=== PATIENT | female | born 1985 | race Caucasian/White ===

== ENCOUNTER 2023-08-19 09:43 | Emergency (ER) | payer OTHER, SELFPAY ==
[2023-08-19 09:53] VITALS: BP 132/83; PULSE 75; RESP 18; TEMP 36.9; O2SAT 100; BMI 29.5
--- NOTE | 2023-08-19 11:09 | ED_ITS ---
HPI - Skin/Abscess/Foreign Bdy General Date Seen: 08/19/23 Chief complaint: Skin/Abscess/Foreign Body Stated complaint: Rash on face Time Seen by Provider: 08/19/23 10:05 Source: patient Mode of arrival: ambulatory Limitations: no limitations History of Present Illness HPI narrative: Patient is a 37-year-old female presenting to the emergency department for a facial rash. He states this of his sinuses occurred since May. She has seen urgent care the 4 previous times. She states when occur she will have her right ear swell up in the nasal radiate to her face with erythema. She states it is painful. 1st few tired she was told it was an infection and was placed on antibiotics. Symptoms would improve with the antibiotics. This last time it occurred she went to urgent care this past Wednesday he had they are unsure what it was so they decided treated as a allergic reaction and start her on Zyrtec and prednisone. She states since then the swelling is gone down quite a bit but she still has pain mostly on her forehead when she was washing her hair. She does not have any pain to light touch. Still has the rash on her face. Has noticed a rash she was to move her around. Has a enlarged lymph node on the back of her right neck. She has a history of Minerva's thyroiditis and last time she had all checked was in May just before the symptoms started. No other aut oimmune disorders. No family history of lupus. Denies chest pain, shortness of breath, lightheadedness, dizziness, headache, vision changes, weakness, numbness, fevers, chills. Related Data Previous Rx's Medication Instructions Recorded prednisone 20 mg tablet 20 mg PO BID 5 days #10 tabs 08/15/23 Allergies Allergy/AdvReac Type Severity Reaction Status Date / Time No Known Drug Allergies Allergy Verified 08/19/23 09:52 Review of Systems Status of ROS: Reports: 10 or more systems reviewed and unremarkable except as noted in History and below [facility] Medical History Erysipelas ?A46 - Erysipelas (ICD-10) Exam Narrative: Exam Narrative: Const: Well-nourished, Well-developed, in mild distress Eyes: PERRL, no conjunctival injection, and symmetrical lids HENT: Atraumatic external nose and ears. Moist mucous membranes. Neck: Symmetric, trachea midline, enlarged lymph node done posterior right neck CVS: RRR, No murmurs or gallops. Peripheral pulses 2+ and equal in all extremities RESP: Unlabored respiratory effort. Clear to auscultation bilaterally. GI: Nontender/Nondistended, No rebound or guarding. MSK:Extremities w/o deformity, Normal Active ROM Skin: Warm, Dry. Macular papular rash seen on patient's bilateral cheeks and anterior to both ears Neuro: Normal Muscle tone, No focal neurological deficits. Psych: Awake, Alert, & Oriented x3. Appropriate mood and affect. Const: Vital Signs, click to edit/add: Vital Signs - 24 hr 08/19/23 09:53 Temperature 98.5 F Pulse Rate [Pulse Oximeter] 75 Respiratory Rate 18 Blood Pressure [Ri ght Upper Arm] 132/83 Pulse Oximetry 100 Oxygen Delivery Me thod Room Air Course Vital Signs Vital signs: Initial Vital Signs Temperature 98.5 F 08/19/23 09:53 Temperature Source Temporal Artery Scan 08/19/23 09:53 Pulse Rate 75 08/19/23 09:53 Pulse Rhythm Regular 08/19/23 09:53 Respiratory Rate 18 08/19/23 09:53 Blood Pressure 132/83 08/19/23 09:53 Blood Pressure Mean 99 08/19/23 09:53 Blood Pressure Position Sitting 08/19/23 09:53 Pulse Oximetry 100 08/19/23 09:53 Oxygen Delivery Method Room Air 08/19/23 09:53 Vital Signs Temperature 98.5 F 08/19/23 09:53 Pulse Rate 75 08/19/23 09:53 Respiratory Rate 18 08/19/23 09:53 Blood Pressure 132/83 08/19/23 09:53 Pulse Oximetry 100 08/19/23 09:53 Oxygen Delivery Method Room Air 08/19/23 09:53 Temperature 98.5 F 08/19/23 09:53 Pulse Rate 75 08/19/23 09:53 Respiratory Rate 18 08/19/23 09:53 Blood Pressure 132/83 08/19/23 09:53 Pulse Oximetry 100 08/19/23 09:53 Oxygen Delivery Method Room Air 08/19/23 09:53 MDM - Skin/Abscess/Foreign Bdy MDM Narrative Medical decision making narrative: Patient is a 37-year-old female presenting with a rash on her face. She also has a swollen lymph node. My 1st thought with her my lower appearing rash on her face that is back could be lupus. She already does have an autoimmune disorder. I will order CBC, CMP, urine , urinalysis, ESR, TSH. TOMMY ordered but is a send out lab. Also considered possible trigeminal neuralgia considered she says it starts in her ear and is tender to the touch but the ten derness is mostly on her forehead and just does when she is washing her hair. It is nontender to to light touch. I will check her TSH to see if there is any signs of a thyroid issue causing these symptoms since she already does have Minerva's. She states she has been gaining weight but she does have this large lymph node so I did consider lymphoma. CBC showed no concerning abnormalities. White blood cell count lines are normal other than very mildly elevated neutrophils at 7.48. CMP shows no concerning findings with no signs of kidney dysfunction. Urinalysis is normal. Urine test is negative. At this point even with the positive TOMMY it is hard to say this is actually lupus as she has no other diagnostic criteria. She may need a biopsy to better diagnose this. TSH is normal. At this point I not sure what is causing this rash in had extensive conversation with her about it. She does have follow-up with dermatology to endocrinology. She at this time will be discharged home and she is agreeable with this plan. Lab Data Labs: Lab Results 08/19/23 08/19/23 Range/Units 11:12 13:04 WBC 10.62 (4.50-11.00) K/uL RBC 5.14 (4.00-5.20) m/uL Hgb 14.9 (12.0-16.0) gm/dL Hct 45.0 (33.0-51.0) % MCV 88 (80-100) fL MCH 29 (26-34) pg MCHC 33 (32-36) gm/dL RDW Coeff of Sebastien 12.5 (11.5-15.5) % Plt Count 286 (140-440) K/uL Neut % (Auto) 70.4 (42.0-72.0) % Lymph % (Auto) 21.8 (20-44) % [place] % (Auto) 6.7 (0.0-11.0) % Eos % (Auto) 0.7 (0.0-7.0) % Baso % (Auto) 0.2 (0.0-3.0) % Neut # (Auto) 7.48 H (1.7-7.0) K/uL Lymph # (Auto) 2.32 (0.90-2.90) K/uL [place] # (Auto) 0.70 (0.00-0.90) K/UL Eos # (Auto) 0.07 (0.00-0.50) K/uL Baso # (Auto) 0.02 (0.00-0.30) K/uL Abs Immat Gran (auto) 0.02 (0.00-0.30) K/uL Imm/Tot Granulo (auto) 0.2 % ESR 6 (2-20) mm/hr Sodium 141 (135-149) mmol/L Potassium 3.6 (3.6-5.1) mmol/L Chloride 106 (96-114) mmol/L Carbon Dioxide 27 (20-32) mmol/L Anion Gap 8 (7-15) mEq/L BUN 20 (5-24) mg/dL Creatinine 0.8 (0.5-1.5) mg/dL Estimated Creat Clear 100.62 Estimated GFR 97 ml/min Glucose 87 (60-115) mg/dL Calcium 9.4 (8.4-10.6) mg/dL Total Bilirubin 0.3 (0.1-1.5) mg/dL AST 15 (12-35) U/L ALT 15 (4-35) U/L Alkaline Phosphatase 44 (40-150) U/L Total Protein 7.6 (6.0-8.3) g/dL Albumin 4.5 (3.3-5.0) g/dL TSH 2.620 (0.270-4.200) uIU/mL Urine Color Yellow (Yellow) Urine Appearance Clear (Clear) Urine pH 6.0 (5.0-8.5) Ur Specific Alpine >= 1.030 (1.000-1.030) Urine Protein Negative (Negative) Urine Glucose (UA) Negative (Negative) Urine Ketones Negative (Negative) Urine Blood Negative (Negative) Urine Nitrite Negative (Negative) Urine Bilirubin Negative (Negative) Urine Urobilinogen 0.2 (0.2-1.0) Ur Leukocyte Esterase Negative (Negative) Urine RBC 0-2 (0-2) Urine WBC 0-2 (0-5) Ur Squamous Epith Cells Moderate A (None-Few) Calcium Oxalate Crystal Many A (None) Urine Bacteria None (None) Urine HCG, Qual Negative (Negative) Discharge Plan Discharge Clinical Impression: Rash Patient Disposition: Home, Self-Care Condition: Stable Instructions: Acute Rash (ED) Additional Instructions: Make sure you follow-up with your library circulation assistant an farm tractor operator appointment that your already have scheduled. I am not sure what is causing this rash right now but it is reasonable to speak to the specialist about possible autoimmune issue consider you do also have Minerva's. Return to emergency department for new or worsening symptoms Prescriptions: No Action prednisone 20 mg tablet 20 mg PO BID 5 Days Qty: 10 0RF Follow Up/Referrals: Provider,Not a Local [Primary Care Provider] - Stand Alone Forms: [facility] Info Instructions
--- OUTSIDE RECORDS SUMMARY | 2023-08-19 11:20 | XMS_ITS | Encounter Summary ---
Author Name Unknown Organization [facility] Address [address] [place] [address]. [id number] Care Team Providers Care Volunteer Firefighter Name Role Phone Emily Tee MD Primary Care Provid er Encounter Details Date Type Department Care Team (Latest Contact Info) Description 06/22/2023 Travel Social History Tobacco Use Types Packs/Day Years Used Date Smoking Tobacco: Former Cigarettes 1 Q uit: 04/09/2013 Smokeless Tobacco: Never Comments:quit smoking Alcohol Use Standard Drinks/Week Comments Yes 0 (1 standard drink = 0.6 oz pur e alcohol) socially Adolescent Education Answer Date Record ed Getting School Help Needed Not on file 05/26 Sex and Gender Information Value Date Recorded Sex Assigned at Not on file Gender Identity Not on file Sexual Orientation Not on file documented as of this encounter Plan of Treatment Not on file documented as of this encounter Visit Diagnoses Not on filedocumented in this encounter Care Teams Volunteer Firefighter Relationship Specialty Start Date End Date Emily Tee MD [address] [place] [address] PCP - General Internal Medicine 04/19/13 documented as of this encounter
--- OUTSIDE RECORDS SUMMARY | 2023-08-19 11:20 | XMS_ITS | Clinical Summary ---
Author Name Unknown Organization [employer] [facility] Address [place], [place] [address] Care Team Providers Care Business Management Specialist Name Role Phone Roland [employer] Primary Care Provider [phone] Allergies No known active allergies Medications Medication Sig Dispensed Refills Start Date End Date Status levothyroxine (SYNTHROID) 50 mcg tabletIndications:A nti-TPO antibodies present Take 1 tablet by mouth before breakfast. 90 tablet 3 01/21/2018 Active ibuprofen (ADVIL; MOTRIN) 600 mg tabletIndications:D ichorionic diamniotic twin in third trimester Take 1 tablet by mouth every 6 hours. Maximum of 3200 mg in 24 hours. 40 tablet 0 03/14/2018 Active Breast Pump - PurchaseIndications :Dichorionic diamniotic twin in third trimester For home use. TWINS 1 Device 0 03/14/2018 Active copper intrauterine device (PARAGARD) Inject 1 Device intrauterine one time for 1 dose. 0 05/19/2018 Active Hospital, Clinic, or Other Facility Administered Medication Ordered Dose Route Frequency Start Date End Date Status copper intrauterine device (PARAGARD)Indications:Encoun ter for IUD insertion 1 Device IU Q 10 YEARS 05/19/2018 Act mitchell Active Problems Problem Noted Date Diagnosed Date Minerva's disease 10/20/2018 Dichorionic diamniotic twin in third t rimester 03/13/2018 Thyroid disease affecting 03/13/2018 Active labor 03/13/2018 Hidradenitis suppurativa 07/26/2014 labor with delivery Immunizations Name Administration Dates Next Due DTaP 02/28/1991,12/26/1987,03/12/1987 ,10/17/1986 Hib Conjugate, Unspecified 12/26/1987,03/12/1987 ,10/17/1986,09/10/1986 Human Papilloma Virus Vaccine 04/29/2009, 009 Influenza, IIV3 (Age >=3 years) 09/10/1986 MMR 01/23/1998,12/26/1987 Polio Virus, Unspecified 02/28/1991,12/26/1987,0 10/17/1986,09/10/1986 Td (Age >=7 Years) 02/28/2007,01/23/1998 Tdap 01/15/2015,07/02/2012,04/23/2008 Family History Medical History Relation Name Comments Alcoholism Father Unknown Father Thyroid Disease Maternal Aunt Alcoholism Mother Good Health Mother Thyroid Disease Mother partial thyr oidectomy for nodules Relation Name Status Comments Father Alive Maternal Aunt Mother Alive Social History Tobacco Use Types Packs/Day Years Used Date Smoking Tobacco: Former Cigarettes 0.5 12 0 02/06/2002 - 02/06/2014 Smokeless Tobacco: Never Tobacco Cessation:Ready to Q uit: No; Counseling Given: Yes Alcohol Use Standard Drinks/Week Comments Yes 2.5 (1 standard drink = 0.6 oz p ure alcohol) none while PHQ-2 Answer Date Recorded PHQ-2 Score 0 10/11/2018 Sex and Gender Information Value Date Recorded Sex Assigned at Not on file Gender Identity Not on file Sexual Orientation Not on file Obstetrics History Para Term AB IAB SAB Ectopic Multiple Livin g Live Births 2 1 1 1 1 3 3 Date Outcome GA Total Labor Labor/2nd/3rd Weight Sex Delivery Anes PTL Era A1 A5 Name Cl in 02/26 Term 38w 1d 7h 30m/3h 25m/0h 49m 3.12 kg (6 lb 14 oz) M Vag Epidu ral N Mary ng 9 9 Brice 03/13 35w 4d 2.79 kg (6 lb 2.4 oz) M Vag Epidu ral Mary ng 7 8 DEWIT Z,BB- Brittanie galloway Delivery Location:[facility]) Comments:OR staff pres ent on floor 03/13 35w 4d 2.08 kg (4 lb 9.4 oz) F Vag Epidu ral N Mary ng 4 8 DEWIT Z,BGMinerva B DELANEY ANY Dr. Zena galloway Complications:None Delivery Location:[facility]) Last Filed Vital Signs Vital Sign Reading Time Taken Comments Blood Pressure 110/62 10/20/2018 1:43 PM CDT Pulse 80 10/20/2018 1:43 PM CDT Temperature 36.7 ??C (98 ??F) 03/13/2018 10:01 PM CDT Respiratory Rate 18 03/14/2018 7:51 AM CDT Oxygen Saturation 99% 03/14/2018 7:51 AM CDT Inhaled Oxygen Concentration - - Weight 89.8 kg (198 lb) 10/20/2018 1:43 PM CDT Height 172.1 cm (5' 7.75) 10/20/2018 1:43 PM CD T Body Mass Index 30.33 10/20/2018 1:43 PM CDT Plan of Treatment Health Maintenance Due Date Last Done Comments COVID-19 vaccine series (#1) 06/05/1986 Hepatitis C screening for age 18-79 12/05/2003 Depression screening for age 12+ 05/19/2019 05/19/2018, 05/19/2018, 11/26/2017, Additional history exists Pap test for age 21-65 10/13/2019 10/12/2016, 2013 BMI (ht and wt on same day) for age 18+ 10/21/2019 10/20/2018, 05/19/2018, 01/21/2018, Additional history exists Influenza for age 9-49 04/09/2023 09/10/1986 Tetanus booster 01/15/2025 01/15/2015, 06/10, 04/23/2008, Additional history exists Tdap Completed 01/15/2015, 06/10, 04/23/2008 HIV for age 15-65 Completed 09/07/2017, 07/26/2014 Pneumococcal series for age 6-64 Aged Out No longer eligible based on patient's age to complete this topic Advance Directives Latest Code Status on File Code Status Date Activated Date Inactivated Comments Full Code 03/13/2018 1:40 PM 03/14/2018 3:58 PM Question Answer Comments Code Status Discussion: Discussed Code Status History Code Status Date Activated Date Inactivated Comments Full Code 02/26/2015 4:21 PM 02/28/2015 4:38 PM Question Answer Comments Code Status Discussion: Discussed Full Code 02/26/2015 8:23 AM 02/26/2015 4:21 PM Care Teams Business Management Specialist Relationship Specialty Start Date End Date [facility] [address] [facility] [place] [address] PCP - General 03/10/17
--- OUTSIDE RECORDS SUMMARY | 2023-08-19 11:20 | XMS_ITS | Clinical Summary ---
Author Name Unknown Organization [place] Address [facility] [place] [address] Care Team Providers Care Telegraph Office Telephone Clerk Name Role Phone Emily Tee MD Primary Care Provid er Allergies No known active allergies Medications Medication Sig Dispensed Refills Start Date End Date Status Acetaminophen (TYLENOL 8 HOUR PO) 0 Activ e triamcinolone (KENALOG) 0.1 % external creamIndications:Jonah orrheic dermatitis Apply topically 2 times daily 30 g 1 05/31/2023 Active Additional Information Patient not taking.Reported on 06/22/2023 Active Problems Problem Noted Date Diagnosed Date Seborrheic dermatitis 05/31/2023 Minerva's disease 10/20/2018 Hidradenitis suppurativa 07/26/2014 CARDIOVASCULAR SCREENING; LDL GOAL LESS THAN 160 06/08/2010 Chronic constipation 09/11/2009 Weight loss 09/11/2009 Tobacco use disorder Overview: quti smoking 04/17/13 Encounters Date Type Department Care Team Description 06/22/2023 11:00 AM TIN CAN LABORER Office Visit [facility] [id number] [place] [phone] Rhina Wilcox MD Cellulitis of face (Primary Dx); Erysipelas; Infective otitis externa, bilateral 06/22/2023 Travel 05/31/2023 11:00 AM CDT Office Visit [facility] [address] [place] [phone] Sondra Alex, FABRIZIO Erysipelas (Primary Dx); Seborrheic dermatitis 05/31/2023 Travel from Last 3 Months Immunizations Name Administration Dates Next Due TD,PF 7+ (Tenivac) 08/09/2009 TDAP Vaccine (Adacel) 07/02/2012 Family History Medical History Relation Comments Family History Negative Brother 3 2 Psychotic Disorder Father alcoholism Thyroid Disease Maternal Aunt 1 Thyroid Disease Maternal Aunt 2 Family History Negative Mother Thyroid Disease Mother Gastrointestinal Disease No family hx of Relation Status Comments Brother 1 Alive Brother 2 Alive Brother 3 Father Alive Maternal Aunt 1 Maternal Aunt 2 Mother Alive Social History Tobacco Use Types Packs/Day Years Used Date Smoking Tobacco: Former Cigarettes 1 Q uit: 04/09/2013 Smokeless Tobacco: Never Tobacco Cessation:Counseling Given: Not Answered Comments:quit smoking 04/17/13 Alcohol Use Standard Drinks/Week Comments Yes 0 (1 standard drink = 0.6 oz pur e alcohol) socially Adolescent Education Answer Date Record ed Getting School Help Needed Not on file 05/26 Sex and Gender Information Value Date Recorded Sex Assigned at Not on file Gender Identity Not on file Sexual Orientation Not on file Last Filed Vital Signs Vital Sign Reading Time Taken Comments Blood Pressure 134/86 06/22/2023 10:19 AM TIN CAN LABORER Pulse 101 06/22/2023 10:19 AM TIN CAN LABORER Temperature 36.4 ??C (97.6 ??F) 06/22/2023 10:[address] Respiratory Rate 16 10/22/2022 12:35 PM CDT Oxygen Saturation 98% 06/22/2023 10:19 AM TIN CAN LABORER Inhaled Oxygen Concentration - - Weight 88.5 kg (195 lb) 06/22/2023 10:19 AM TIN CAN LABORER Height 175.3 cm (5' 9) 06/22/2023 10:19 AM TIN CAN LABORER Body Mass Index 28.8 06/22/2023 10:19 AM TIN CAN LABORER Plan of Treatment Health Maintenance Due Date Last Done Comments ADVANCE CARE PLANNING 1985 ANNUAL REVIEW OF HM ORDERS 1985 HEPATITIS B IMMUNIZATION (1 of 3 - 3-dose series) 1985 YEARLY PREVENTIVE VISIT 1985 COVID-19 Vaccine (#1) 06/05/1986 HIV SCREENING 2000 HEPATITIS C SCREENING 12/05/2003 HPV IMMUNIZATION (3 - 3-dose series) 07/22/2009 04/29/2009, 11/16/2008 PAP 01/07/2013 01/07/2010 INFLUENZA VACCINE (#1) 2023 09/10/1986 PHQ-2 (once per calendar year) 2023 DTAP/TDAP/TD IMMUNIZATION (10 - Td or Tdap) 01/15/2025 01/15/2015, 07/02/2012, 08/09/2009, Additional history exists IPV IMMUNIZATION Completed 02/28/1991, , 10/17/1986, Additional history exists MENINGITIS IMMUNIZATION Aged Out No l onger eligible based on patient's age to complete this topic Pneumococcal Vaccine: Pediatrics (0 to 5 Years) and At-Risk Patients (6 to 64 Years) Aged Out No longer eligible based on patient's age to complete this topic RSV MONOCLONAL ANTIBODY Aged Out No l onger eligible based on patient's age to complete this topic Procedures Procedure Name Priority Date/Time Associated Diagnosis Comments WBC AND DIFFERENTIAL Routine 06/22/2023 10:43 AM TIN CAN LABORER Cellulitis of face WBC AND DIFFERENTIAL Routine 06/22/2023 10:43 AM TIN CAN LABORER Cellulitis of face from Last 3 Months Results * WBC and Differential (06/22/2023 10:43 AM TIN CAN LABORER) WBC Count 10.0 4.0 - 11.0 10e3/uL 06/22/2023 10:45 AM TIN CAN LABORER [facility] % Neutrophils 72 % 06/22/2023 10:45 AM TIN CAN LABORER [facility] % Lymphocytes 20 % 06/22/2023 10:45 AM [facility] LAB[facility] % Monocytes 6 % 06/22/2023 10:45 AM TIN CAN LABOR[facility] % Eosinophils 1 % 06/22/2023 10:45 AM T[facility] LAB[facility] % Basophils 0 % 06/22/2023 10:45 AM T[facility] CAN LAB[facility] % Immature Granulocytes 0 % 06/22/2023 10:45 AM TIN CAN LABORER [facility] Absolute Neutrophils 7.2 1.6 - 8.3 10e3/uL 06/22/2023 10:45 AM TIN CAN LABORER [facility] Absolute Lymphocytes 2.0 0.8 - 5.3 10e3/uL 06/22/2023 10:45 AM TIN CAN LABORER [facility] Absolute Monocytes 0.6 0.0 - 1.3 10e3/uL 06/22/2023 10:45 AM TIN CAN LABORER [facility] Absolute Eosinophils 0.1 0.0 - 0.7 10e3/uL 06/22/2023 10:45 AM TIN CAN LABORER [facility] Absolute Basophils 0.0 0.0 - 0.2 10e3/uL 06/22/2023 10:45 AM TIN CAN LABORER [facility] Absolute Immature Granulocytes 0.0 <=0.4 10e3/uL 06/22/2023 10:45 AM TIN CAN LABORER [facility] Blood BLOOD SPECIMEN / Unknown Venipuncture / Unknown 06/22/2023 10:43 AM TIN CAN LABORER 06/22/2023 10:43 AM TIN CAN LABORER Rhina Wilcox MD LAB - BLOOD ORDERABL ES [facility] [address] [facility] (no room number, 1st floor of clinic) [place] [address], [facility] [phone] from Last 3 Months Care Teams Telegraph Office Telephone Clerk Relationship Specialty Start Date End Date Emily Tee MD [address] [place] [address] PCP - General Internal Medicine 04/19/13
--- OUTSIDE RECORDS SUMMARY | 2023-08-19 11:20 | XMS_ITS | Referral Summary ---
Author Name Unknown Organization [place] Address [facility] [place] [address] Care Team Providers Care Plastics Process Hand Name Role Phone Emily Tee MD Primary Care Provid er Encounters Date Type Department Care Team Description 06/22/2023 Travel 06/22/2023 11:00 AM BOOKMAKER'S CLERK Office Visit [facility] [id number] [place] [address] [phone] Rhina Wilcox MD Cellulitis of face (Primary Dx); Erysipelas; Infective otitis externa, bilateral 05/31/2023 Travel 05/31/2023 11:00 AM CDT Office Visit [facility] [id number] [place] [address] [phone] Sondra Alex PA-C Erysipelas (Primary Dx); Seborrheic dermatitis from Last 3 Months Allergies No known active allergies Medications Medication [...] Tobacco use disorder Overview: quti smoking 04/17/13 Immunizations Name Administration Dates Next Due TD,PF 7+ (Tenivac) 08/09/2009 TDAP Vaccine (Adacel) 07/02/2012 Social History Tobacco Use Types Packs/Day Years [...] Comments Blood Pressure 134/86 06/22/2023 10:19 AM BOOKMAKER'S CLERK Pulse 101 06/22/2023 10:19 AM BOOKMAKER'S CLERK Temperature 36.4 ??C (97.6 ??F) 06/22/2023 10:[address] Respiratory Rate 16 10/22/2022 12:35 PM CDT Oxygen Saturation 98% 06/22/2023 10:19 AM BOOKMAKER'S CLERK Inhaled Oxygen Concentration - - Weight 88.5 kg (195 lb) 06/22/2023 10:19 AM BOOKMAKER'S CLERK Height 175.3 cm (5' 9) 06/22/2023 10:19 AM BOOKMAKER'S CLERK Body Mass Index 28.8 06/22/2023 10:19 AM BOOKMAKER'S CLERK Plan of Treatment Not on file Procedures Procedure Name Priority Date/Time Associated Diagnosis Comments WBC AND DIFFERENTIAL Routine 06/22/2023 10:43 AM BOOKMAKER'S CLERK Cellulitis of face WBC AND DIFFERENTIAL Routine 06/22/2023 10:43 AM BOOKMAKER'S CLERK Cellulitis of face from Last 3 Months Results * WBC and Differential (06/22/2023 10:43 AM BOOKMAKER'S CLERK) WBC Count 10.0 4.0 - 11.0 10e3/uL 06/22/2023 10:45 AM BOOKMAKER'S CLERK [facility] % Neutrophils 72 % 06/22/2023 10:45 AM BOOKMAKER'S CLERK [facility] % Lymphocytes 20 % 06/22/2023 10:45 AM BOOKMAKER'S CLERK [facility] % Monocytes 6 % 06/22/2023 10:45 AM BOOKMAKER'S CLERK [facility] % Eosinophils 1 % 06/22/2023 10:45 AM BOOKMAKER'S CLERK [facility] % Basophils 0 % 06/22/2023 10:45 AM BOOKMAKER'S CLERK [facility] % Immature Granulocytes 0 % 06/22/2023 10:45 AM BOOKMAKER'S CLERK [facility] Absolute Neutrophils 7.2 1.6 - 8.3 10e3/uL 06/22/2023 10:45 AM BOOKMAKER'S CLERK [facility] Absolute Lymphocytes 2.0 0.8 - 5.3 10e3/uL 06/22/2023 10:45 AM BOOKMAKER'S CLERK [facility] Absolute Monocytes 0.6 0.0 - 1.3 10e3/uL 06/22/2023 10:45 AM BOOKMAKER'S CLERK [facility] Absolute Eosinophils 0.1 0.0 - 0.7 10e3/uL 06/22/2023 10:45 AM BOOKMAKER'S CLERK [facility] Absolute Basophils 0.0 0.0 - 0.2 10e3/uL 06/22/2023 10:45 AM BOOKMAKER'S CLERK [facility] Absolute Immature Granulocytes 0.0 <=0.4 10e3/uL 06/22/2023 10:45 AM BOOKMAKER'S CLERK [facility] Blood BLOOD SPECIMEN / Unknown Venipuncture / Unknown 06/22/2023 10:43 AM BOOKMAKER'S CLERK 06/22/2023 10:43 AM BOOKMAKER'S CLERK Rhina Wilcox MD LAB - BLOOD ORDERABL ES [facility] [address] [facility] Lab (no room number, 1st floor of clinic) [place] [address], [facility] [phone] from Last 3 Months Care Teams Plastics Process Hand Relationship Specialty Start Date End Date Emily Tee MD [address] [place] [address] PCP - General Internal Medicine 04/19/13
--- OUTSIDE RECORDS SUMMARY | 2023-08-19 11:21 | XMS_ITS | Encounter Summary ---
Author Name Unknown Organization [place] Address [address] [facility] [place] [address] Care Team Providers Care Buffing Wheel Former Machine Name Role Phone Emily Tee MD Primary Care Provid er Reason for Visit * Reason Comments Urgent Care See 05/31/23 OV. F/U on Erysipelas on face; pt says condition cleared after Amox course initially but came back. F/U on Jonah Derm on ears; marginal improvement with TMC. Encounter Details Date Type Department Care Team (Late st Contact Info) Description 06/22/2023 11:00 AM FOOT MITER OPERATOR Office Visit [facility] [place] [address] [place] [phone] Rhina Wilcox MD [address] [place] [id number] Cellulitis of face (Primary Dx); Erysipelas; Infective otitis externa, bilateral Social History Tobacco Use Types Packs/Day Years [...] on file documented as of this encounter Last Filed Vital Signs Vital Sign Reading Time Taken Comments Blood Pressure 134/86 06/22/2023 10:19 AM FOOT MITER OPERATOR Pulse 101 06/22/2023 10:19 AM FOOT MITER OPERATOR Temperature 36.4 ??C (97.6 ??F) 06/22/2023 10:[address] Respiratory Rate - - Oxygen Saturation 98% 06/22/2023 10:19 AM FOOT MITER OPERATOR Inhaled Oxygen Concentration - - Weight 88.5 kg (195 lb) 06/22/2023 10:19 AM FOOT MITER OPERATOR Height 175.3 cm (5' 9) 06/22/2023 10:19 AM FOOT MITER OPERATOR Body Mass Index 28.8 06/22/2023 10:19 AM FOOT MITER OPERATOR documented in this encounter Patient Instructions * Patient Instructions* Rhina Wilcox MD - 06/22/2023 11:00 AM FOOT MITER OPERATOR Augmentin twice daily for 14 days. Follow up with piercing studio to discuss clipping of earring on L side. Ofloxacin drops in both ears 3 times daily for 7 days. MITER OPERATOR documented in this encounter Progress Notes * Rhina Wilcox MD - 06/22/2023 11:00 AM CST ASSESSMENT: ICD-10-CM 1. Cellulitis of face L03.211 WBC with Diff WBC with Diff amoxicillin-clavulanate (AUGMENTIN) 875-125 MG tablet 2. Erysipelas A46 amoxicillin-clavulanate (AUGMENTIN) 875-125 MG tablet 3. Infective otitis externa, bilateral H60.393 ofloxacin (FLOXIN) 0.3 % otic solution Recurrent erysipelas with bilateral otitis externa. WBC 10.0, absolute neutrophils 7.2. I do not this parenteral antibiotics are needed at this time, but pt is to watch redness and symptoms closely to ensure improvement begins within 3 days of starting new oral antibiotics. No signs of systemic infection at this time to suggest need for blood cultures. PLAN: Patient Instructions Augmentin twice daily for 14 days. Follow up with piercing studio to discuss clipping of earring on L side. Ofloxacin drops in both ears 3 times daily for 7 days. SUBJECTIVE: Kayy Jerome is a 37 year old who presents to for follow up of erysipelas. She was seen on05/31 and given 7 day course of amoxicillin. She noticed resolution of symptoms and reports taking antibiotic precisely as directed. Was doing well until 06/13 when she noticed swelling in left ear sim ilar to previous infection and used oils with improvement. Then on 06/20 noticed swelling and pain in right ear along with erythema and swelling on the right side of face. Denies fever. She is also concerned about an ear piercing on her left upper ear that has begun to grow into the skin. OBJECTIVE: BP 134/86 Pulse 101 Temp 97.6 ??F (36.4 ??C) (Oral) Ht 1.753 m (5' 9) Wt 88.5 kg (195 lb) SpO2 98% BMI 28.80 kg/m?? Physical Exam Constitutional: General: She is not in acute distress. Appearance: She is well-groomed. She is not ill-appearing. HENT: Head: Right periorbital erythema present. Right Ear: Hearing and tympanic membrane normal. Drainage, swelling and tenderness present. No mastoid tenderness. Left Ear: Hearing and tympanic membrane normal. Swelling and tenderness present. No mastoid tenderness. Lymphadenopathy: Cervical: Cervical adenopathy present. Right cervical: Superficial cervical adenopathy present. Left cervical: No superficial cervical adenopathy. Skin: Findings: Erythema present. Neurological: Mental Status: She is alert. Hoop earring on upper portion of pinna is tightly adhered to the curve of the ear and there is swelling around the area that prohibits easy removal of the jewelry. Results for orders placed or performed in visit on 06/22/23 WBC and Differential Status: None Result Value Ref Range WBC Count 10.0 4.0 - 11.0 10e3/uL % Neutrophils 72 % % Lymphocytes 20 % % Monocytes 6 % % Eosinophils 1 % % Basophils 0 % % Immature Granulocytes 0 % Absolute Neutrophils 7.2 1.6 - 8.3 10e3/uL Absolute Lymphocytes 2.0 0.8 - 5.3 10e3/uL Absolute Monocytes 0.6 0.0 - 1.3 10e3/uL Absolute Eosinophils 0.1 0.0 - 0.7 10e3/uL Absolute Basophils 0.0 0.0 - 0.2 10e3/uL Absolute Immature Granulocytes 0.0 <=0.4 10e3/uL WBC with Diff Status: None Narrative The following orders were created for panel order WBC with Diff. Procedure Abnormality Status --------- ------ WBC and Differential[[id number]] Final result Please view results for these tests on the individual orders. MITER OPERATOR documented in this encounter Plan of Treatment Not on file documented as of this encounter Procedures Procedure Name Priority Date/Time Associated Diagnosis Comments WBC AND DIFFERENTIAL Routine 06/22/2023 10:43 AM FOOT MITER OPERATOR Cellulitis of face WBC AND DIFFERENTIAL Routine 06/22/2023 10:43 AM FOOT MITER OPERATOR Cellulitis of face documented in this encounter Results * WBC and Differential (06/22/2023 10:43 AM FOOT MITER OPERATOR) WBC Count 10.0 4.0 - 11.0 10e3/uL 06/22/2023 10:45 AM FOOT MITER OPERATOR [facility] % Neutrophils 72 % 06/22/2023 10:45 AM FOOT MITER OPERATOR [facility] % Lymphocytes 20 % 06/22/2023 10:45 AM FOOT MITER OPERATOR [facility] % Monocytes 6 % 06/22/2023 10:45 AM FOOT MITER OPERATOR [facility] % Eosinophils 1 % 06/22/2023 10:45 AM FOOT MITER OPERATOR [facility] % Basophils 0 % 06/22/2023 10:45 AM FOOT MITER OPERATOR [facility] % Immature Granulocytes 0 % 06/22/2023 10:45 AM FOOT MITER OPERATOR [facility] Absolute Neutrophils 7.2 1.6 - 8.3 10e3/uL 06/22/2023 10:45 AM FOOT MITER OPERATOR [facility] Absolute Lymphocytes 2.0 0.8 - 5.3 10e3/uL 06/22/2023 10:45 AM FOOT MITER OPERATOR [facility] Absolute Monocytes 0.6 0.0 - 1.3 10e3/uL 06/22/2023 10:45 AM FOOT MITER OPERATOR [facility] Absolute Eosinophils 0.1 0.0 - 0.7 10e3/uL 06/22/2023 10:45 AM FOOT MITER OPERATOR [facility] Absolute Basophils 0.0 0.0 - 0.2 10e3/uL 06/22/2023 10:45 AM FOOT MITER OPERATOR [facility] Absolute Immature Granulocytes 0.0 <=0.4 10e3/uL 06/22/2023 10:45 AM FOOT MITER OPERATOR [facility] Blood BLOOD SPECIMEN / Unknown Venipuncture / Unknown 06/22/2023 10:43 AM FOOT MITER OPERATOR 06/22/2023 10:43 AM FOOT MITER OPERATOR Rhina Wilcox MD LAB - BLOOD ORDERABL ES [facility] [address] [facility] Lab (no room number, 1st floor of clinic) [place] [address], [facility] [phone] documented in this encounter Visit Diagnoses Diagnosis Cellulitis of face- Primary Cellulitis and abscess of face Erysipelas Infective otitis externa, bilateral documented in this encounter Care Teams Buffing Wheel Former Machine Relationship Specialty Start Date End Date Emily Tee MD [address] [place] [address] PCP - General Internal Medicine 04/19/13 documented as of this encounter
--- OUTSIDE RECORDS SUMMARY | 2023-08-19 11:21 | XMS_ITS | Encounter Summary ---
Author Name Unknown Organization [place] Address [address] [place] [address]. [place] [address] Care Team Providers Care Roller Setter Name Role Phone Emily Tee MD Primary Care Provid er Encounter Details Date Type Department Care Team (Latest Contact Info) Description 10/22/2022 Travel Social History Tobacco Use Types Packs/Day Years Used Date Smoking Tobacco: Former Cigarettes 1 Q uit: 04/09/2013 Smokeless Tobacco: Never Comments:quit smoking Alcohol Use Standard Drinks/Week Comments Yes 0 (1 standard drink = 0.6 oz pur e alcohol) socially Sex and Gender Information Value Date Recorded Sex Assigned at Not on file Gender Identity Not on file Sexual Orientation Not on file COVID-19 Exposure Response Date Recorded In the last 10 days, have yo u been in contact with someone who was confirmed or suspected to have Coronavirus/COVID-19? No / Unsure 10/22/2022 12:02 PM CDT documented as of this encounter Plan of Treatment Not on file documented as of this encounter Visit Diagnoses Not on filedocumented in this encounter Care Teams Roller Setter Relationship Specialty Start Date End Date Emily Tee MD [address] [place] [address] PCP - General Internal Medicine 04/19/13 documented as of this encounter
--- OUTSIDE RECORDS SUMMARY | 2023-08-19 11:21 | XMS_ITS | Patient Health Record ---
Author Name Unknown Organization [facility] Address [address] [place] [address] Care Team Providers Care Manufacturing Engineer Name Role Phone None, No PCP Primary Care Provider David Vogel Unavailable [phone] ALLERGIES No Known Allergies RESULTS Component Value Reference Range Notes THINPREP TIS AND HPV mRNA E6 /E7 (30 yrs and over) Reviewed date:05/26/2023 12:06:37 PM Interpretation: Performing Lab:[facility] [place], [place] [id number] Ru Morris Notes/Report: CLINICAL INFORMATION: None g iven LMP: 04/30/23 PREV. PAP: 2018 PREV. BX: NONE GIVEN SOURCE: Cervix STATEMENT OF ADEQUACY: Satisfactory for evaluation. Endocervical/transformation zone component present. Partially obscuring inflammation INTERPRETATION/RESULT: Cytology Results: Negative for intraepithelial lesion or malignancy. COMMENT: This case could not be evaluated with computer assisted technology. The slide was manually screened according to routine procedures. AUTOMOTIVE TITLE CLERK: ELVER MELENDREZ (ASCP) CT Screening location: [address] [address] REVIEW AUTOMOTIVE TITLE CLERK: ELVER ROBIN(ASCP) CT Screening location: [address] [address] COMMENT EXPLANATORY NOTE: The Pap is a screening test for cervical cancer. It is not a diagnostic test and is subject to false negative and false positive results. It is most reliable when a satisfactory sample, regularly obtained, is submitted with relevant clinical findings and history, and when the Pap result is evaluated along with historic and current clinical information. HPV mRNA E6/E7 Not Detected Not Detected Methodology: Coal Digger-Mediated Amplification This assay detects E6/E7 viral messenger RNA (mRNA) from 14 high-risk HPV types (16,18,31,33,35,39,45,51,52 ,56,58,59,66,68). Cervical sources are required for HPV testing. If a vaginal source from a patient who has had a total hysterectomy with removal of cervix was submitted, please contact the testing laboratory for alternative testing options. For additional information, please refer to http://education.CE Interactive/faq/UAO190f8 (This link if provided for information/ educational purposes only.) THYROGLOBULIN ANTIBODIES Reviewed date:05/26/2023 12:05:27 PM Interpretation: Performing Lab:[facility] [facility], [id number] Ru Morris Notes/Report: THYROGLOBULIN ANTIBODIES 2 < or = 1 IU/mL T4, FREE Reviewed date:05/26/2023 12:07:02 PM Interpretation: Performing Lab:[facility], [id number] Ru Morris Notes/Report: T4, FREE 1.2 0.8-1.8 ng/dL TSH Reviewed date:05/20/2023 02:33:18 PM Interpretation: Performing Lab:[facility], [facility] [id number] Ru Morris Notes/Report: TSH 2.71 Reference Range > or = 20 Years 0.40-4.50 Ranges First trimester 0.26-2.66 Second trimester 0.55-2.73 Third trimester 0.43-2.91 T3, FREE Reviewed date:05/26/2023 12:06:14 PM Interpretation: Performing Lab:[facility], [id number] Ru Morris Notes/Report: T3, FREE 3.2 2.3-4.2 pg/mL REASON FOR REFERRAL No Information MEDICATIONS Medication SIG (Take, Route, Frequency, Duration) Notes Start Date End Date Status Paragard Intrauterine Copper - as directed Intrauterine removed 05/19/2023 Not-Taking SOCIAL HISTORY Tobacco Use: Social History Observation Description Date Details (start date - stop date) Never Smoker NA - NA Sex Assigned At : Social History Observation Description Sex Assigned At Unknown Tobacco Use/Smoking Question Answer Notes Are you a nonsmoker Alcohol Screen (Audit-C) Question Answer Notes Did you have a drink contain ing alcohol in the past year? Yes How often did you have a dri nk containing alcohol in the past year? 2 to 3 times a week (3 points) How many drinks did you have on a typical day when you were drinking in the past year? 3 or 4 drinks (1 point) How often did you have 6 or more drinks on one occasion in the past year? 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 Minerva's thyroiditis (38320021) VITAL SIGNS Blood pressure diastolic 86 mm Hg 05/19/2023 Height 69 in 05/19/2023 Blood pressure systolic 118 mm Hg 05/19/2023 Weight 197.8 lbs 05/19/2023 BMI 29.21 kg/m2 05/19/2023 Encounters Encounter Location Date Provider Diagnosis [facility] [address] [place] [address] 05/19/2023 David London Encounter for routin e checking of intrauterine contraceptive device Z30.431 and Minerva's thyroiditis E06.3 [facility] [address] [place] [address] 05/19/2023 David London Minerva's thyroidi tis E06.3 ; Encounter for annual routine gynecological examination Z01.419 and Encounter for screening for human papillomavirus (HPV) Z11.51 ASSESSMENTS Encounter Date Diagnosis Assessment Notes Treatment Notes Treatment Clinical Notes 05/19/2023 Encounter for routine checking of intrauterine contraceptive device (ICD-10 - Z30.431) 05/19/2023 Minerva's thyroiditis (ICD-10 - E06.3) 05/19/2023 Encounter for annual routine gynecological examination (ICD-10 - Z01.419) 05/19/2023 Minerva's thyroiditis (ICD-10 - E06.3) 05/19/2023 Encounter for screening for human papillomavirus (HPV) (ICD-10 - Z11.51) 05/19/2023 Other 20 minutes spen t on the date of the encounter doing chart review, history and exam, documentation and further activities per the note PLAN OF TREATMENT No Information Insurance Providers Payer Name Payer Address Payer Phone Subscriber Number Group Number Insured Name Patient Relationship to Insured Coverage Start Date Coverage End Date [facility] [address] [facility] [place] [id number] Kayy Hurtado Self - patient is the insured MEDICAL (GENERAL) HISTORY Medical History History ICD Code Minerva's Disease Hospitalization History Reason Date(Month/Year) child
--- OUTSIDE RECORDS SUMMARY | 2023-08-19 11:21 | XMS_ITS | Encounter Summary ---
Author Name Unknown Organization [place] Address [address] [facility] [place] [address] Care Team Providers Care Master Tax Advisor Name Role Phone Emily Tee MD Primary Care Provid er Reason for Visit * Reason Comments Urgent Care Gradual facial swell ing with pain and stiff neck over the last 4d. Pt took Benadryl and Ibuprofen last night with no improvement. Encounter Details Date Type Department Care Team (Late st Contact Info) Description 05/31/2023 11:00 AM CDT Office Visit [facility] [place] [address] [place] [phone] Sondra Alex, FABRIZIO Erysipelas (Primary Dx); Seborrheic dermatitis Social History Tobacco Use Types Packs/Day Years [...] Sign Reading Time Taken Comments Blood Pressure 133/87 05/31/2023 10:15 AM CDT Pulse 79 05/31/2023 10:15 AM CDT Temperature 37.7 ??C (99.9 ??F) 05/31/2023 10:15 AM C DT Respiratory Rate - - Oxygen Saturation 99% 05/31/2023 10:15 AM CDT Inhaled Oxygen Concentration - - Weight 88.5 kg (195 lb) 05/31/2023 10:15 AM CDT Height 175.3 cm (5' 9) 05/31/2023 10:15 AM CDT Body Mass Index 28.8 05/31/2023 10:15 AM CDT documented in this encounter Progress Notes * Sondra Alex PA-C - 05/31/2023 11:00 AM CDT Assessment & Plan: ICD-10-CM 1. Erysipelas A46 amoxicillin (AMOXIL) 500 MG capsule 2. Seborrheic dermatitis L21.9 triamcinolone (KENALOG) 0.1 % external cream Plan/Clinical Decision Making: Patient with acute swelling and erythema of face, ears and tenderness of scalp. Has tenderness of neck nodes. Mild elevation of temp today. Rash consistent with erysipelas. Will treat with course of Amoxicillin. Patient has rash on bilateral ears. History of chronic external ear rashes with flaking of skin. Will treat with steroid cream for flare up of rash. Suspect that cracking of skin could have caused skin infection. Return if symptoms worsen or fail to improve, for in 3-5 days. At the end of the encounter, I discussed results, diagnosis, medications. Discussed red flags for immediate return to clinic/ER, as well as indications for follow up if no improvement. Patient understood and agreed to plan. Patient was stable for discharge. Sondra Alex PA-C on 05/31/2023 at 10:32 AM Subjective: HPI: Kayy is a 37 year old female who presents to clinic today for the following health issues: Chief Complaint Patient presents with Urgent Care Gradual facial swelling with pain and stiff neck over the last 4d. Pt took Benadryl and Ibuprofen last night with no improvement. HPI Rash on face. Tried benadryl and woke up and worse. Patient complains of swelling. Not itching. Having soreness and pain. No exposure to anything. No new products, lotions or makeup. No recent travel. No fever, no illness. Hx of chronic external ear rashes with itching, flaking of skin. Has been more intense this week with more itching. Review of Systems Constitutional: Negative for chills, diaphoresis and fever. HENT: Positive for facial swelling. Negative for congestion, dental problem, sinus pressure, sinus pain and sore throat. Respiratory: Negative for shortness of breath. Gastrointestinal: Negative for vomiting. Skin: Positive for rash. Patient Active Problem List Diagnosis Chronic constipation Weight loss CARDIOVASCULAR SCREENING; LDL GOAL LESS THAN 160 Tobacco use disorder Minerva's disease Hidradenitis suppurativa Seborrheic dermatitis Past Medical History: Diagnosis Date Groin abscess Tobacco use disorder quti smoking 04/17/13 Social History Tobacco Use Smoking status: Former Packs/day: 1 Types: Cigarettes Quit date: 04/09/2013 Years since quittin.1 Smokeless tobacco: Never Tobacco comments: quit smoking 04/17/13 Substance Use Topics Alcohol use: Yes Comment: socially Objective: Vitals: 05/31/23 1015 BP: 133/87 Pulse: 79 Temp: 99.9 ??F (37.7 ??C) TempSrc: Oral SpO2: 99% Weight: 88.5 kg (195 lb) Height: 1.753 m (5' 9) Physical Exam EXAM: Pleasant, alert, appropriate appearance. NAD. Head Exam: Normocephalic, atraumatic. Eye Exam: PERRLA, EOMI, non icteric/injection. Ear Exam: TMs marquis without bulging. Swelling and erythema of pinna bilaterally with areas of cracking and flaking. Nose Exam: Normal external nose. OroPharynx Exam: Moist mucous membranes. No erythema, pharynx without exudate or hypertrophy. Neck/Thyroid Exam: tender adenopathy in neck. Chest/Respiratory Exam: CTAB. Cardiovascular Exam: RRR. No murmur or rubs. Skin: erythema of face, ears, tenderness of face. Results: No results found for any visits on 05/31/23. documented in this encounter Plan of Treatment Not on file documented as of this encounter Visit Diagnoses Diagnosis Erysipelas- Primary Seborrheic dermatitis Seborrheic dermatitis, unspecified documented in this encounter Care Teams Master Tax Advisor Relationship Specialty Start Date End Date Emily Tee MD [address] [place], [place] [address] PCP - General Internal Medicine 04/19/13 documented as of this encounter
--- OUTSIDE RECORDS SUMMARY | 2023-08-19 11:21 | XMS_ITS | Encounter Summary ---
Author Name Unknown Organization [place] Address [facility] [place] [address] Care Team Providers Care Gang Plank Workman Name Role Phone Emily Tee MD Primary Care Provid er Reason for Visit * Reason Comments Pharyngitis Pt reports exposure to strep. ST, swollen lymph nodes. Encounter Details Date Type Department Care Team (Late st Contact Info) Description 10/22/2022 12:05 PM CDT Office Visit [facility] [address] [phone] Sondra Alex PA-C Strep pharyngitis (Primary Dx) Social History Tobacco Use Types Packs/Day Years [...] PM CDT documented as of this encounter Last Filed Vital Signs Vital Sign Reading Time Taken Comments Blood Pressure - - Pulse 76 10/22/2022 12:35 PM CDT Temperature 37.5 ??C (99.5 ??F) 10/22/2022 12:35 PM C DT Respiratory Rate 16 10/22/2022 12:35 PM CDT Oxygen Saturation 98% 10/22/2022 12:35 PM CDT Inhaled Oxygen Concentration - - Weight - - Height - - Body Mass Index - - documented in this encounter Progress Notes * Sondra Alex PA-C - 10/22/2022 12:05 PM CDT Assessment & Plan: ICD-10-CM 1. Strep pharyngitis J02.0 Streptococcus A Rapid Screen w/Reflex to PCR - Clinic Collect penicillin V (VEETID) 500 MG tablet Plan/Clinical Decision Making: Patient with ongoing ST for the past week with swollen neck glands and now developing rash. Positive strep. Will treat with course of Penicillin. Rest, fluids, Tylenol, ibuprofen as needed. Return if symptoms worsen or fail to improve, for in 2-3 days. At the end of the encounter, I discussed results, diagnosis, medications. Discussed red flags for immediate return to clinic/ER, as well as indications for follow up if no improvement. Patient understood and agreed to plan. Patient was stable for discharge. Sondra Alex PA-C on 10/22/2022 at 1:17 PM Subjective: HPI: Kayy is a 36 year old female who presents to clinic today for the following health issues: Chief Complaint Patient presents with ??? Pharyngitis Pt reports exposure to strep. ST, swollen lymph nodes. HPI Patient complains of ST last Wednesday, throat feels swollen, lymph nodes swollen. Feeling warm. Now developing rash on sides of face, neck. Chronic eczema of ears. History obtained from the patient. Review of Systems HENT: Positive for sore throat. Patient Active Problem List Diagnosis ??? Chronic constipation ??? Weight loss ??? CARDIOVASCULAR SCREENING; LDL GOAL LESS THAN 160 ??? Tobacco use disorder Past Medical History: Diagnosis Date ??? Groin abscess ??? Tobacco use disorder quti smoking 04/17/13 Social History Tobacco Use ??? Smoking status: Former Packs/day: 1.00 Types: Cigarettes Quit date: 04/09/2013 Years since quittin.5 ??? Smokeless tobacco: Never ??? Tobacco comments: quit smoking 04/17/13 Substance Use Topics ??? Alcohol use: Yes Comment: socially Objective: Vitals: 10/22/22 1235 Pulse: 76 Resp: 16 Temp: 99.5 ??F (37.5 ??C) TempSrc: Tympanic SpO2: 98% Physical Exam EXAM: Pleasant, alert, appropriate appearance. NAD. Head Exam: Normocephalic, atraumatic. Eye Exam: non icteric/injection. Ear Exam: TMs marquis without bulging. Normal canals. Normal pinna. Nose Exam: Normal external nose. OroPharynx Exam: Moist mucous membranes. positive erythema, pharynx without exudate or hypertrophy. Neck/Thyroid Exam: Neck adenopathy Chest/Respiratory Exam: CTAB. Cardiovascular Exam: RRR. Skin: fine papular rash on bilateral sides of face and neck. Bilateral ears with chronic skin changes with flaking, redness of ears. Results: Results for orders placed or performed in visit on 10/22/22 Streptococcus A Rapid Screen w/Reflex to PCR - Clinic Collect Status: Abnormal Specimen: Throat; Swab Result Value Ref Range Group A Strep antigen Positive (A) Negative documented in this encounter Plan of Treatment Not on file documented as of this encounter Procedures Procedure Name Priority Date/Time Associated Diagnosis Comments STREPTOCOCCUS A RAPID SCREEN W REFELX TO PCR Routine 10/22/2022 12:31 PM CDT Strep pharyngitis documented in this encounter Results * (ABNORMAL) Streptococcus A Rapid Screen w/Reflex to PCR - Clinic Collect (10/22/2022 12:31 PM CDT) Group A Strep antigen Positive(A ) Negative 10/22/2022 12:52 PM CDT LABORATORY Swab STRUCTURE OF ANTERIOR PORTION OF NECK / Unknown Non-blood Collection / Unknown 10/22/2022 12:31 PM CDT 10/22/2022 12:38 PM CDT Sondra Alex PA-C LAB - MICRO GENERAL ORDERABLES LABORATORY [facility] [address] [facility] (no room number, 1st floor of clinic) [place] [address], [facility] [phone] documented in this encounter Visit Diagnoses Diagnosis Strep pharyngitis- Primary Streptococcal sore throat documented in this encounter Care Teams Gang Plank Workman Relationship Specialty Start Date End Date Emily Tee MD [address] [place] [address] PCP - General Internal Medicine 04/19/13 documented as of this encounter
--- OUTSIDE RECORDS SUMMARY | 2023-08-19 11:21 | XMS_ITS | Encounter Summary ---
Author Name Unknown Organization [place] Address [address] [facility] [place] [address] Care Team Providers Care Lacquer Sprayer Name Role Phone Emily Tee MD Primary Care Provid er Reason for Visit * Reason Onset Date Comments Outreach 05/14/2014 [facility] Att 1,2 Encounter Details Date Type Department Care Team (Late st Contact Info) Description 05/14/2014 Telephone [facility] [address] [place] [address] Emily Tee MD [address] [place] [address] Outreach ([facility] Att 1,2) Social History Tobacco Use Types Packs/Day Years [...] on file documented as of this encounter Miscellaneous Notes * Telephone Encounter - Nusrat Tejeda - 01/04/2015 10:20 AM CDT 01/04/2015 Call Regarding Preventive Health Screening Cervical/PAP Attempt 2 Message on voicemail Comments: Outreach Nuclear Weapons Mechanical Specialist Nusrat Tejeda * Telephone Encounter - Carlos Hernández - 05/14/2014 11:54 AM CDT 05/14/2014 Call Regarding Preventive Health Screening Cervical/PAP Attempt 1 Message on voicemail Comments: Outreach Nuclear Weapons Mechanical Specialist rbg documented in this encounter Plan of Treatment Not on file documented as of this encounter Visit Diagnoses Not on filedocumented in this encounter Care Teams Lacquer Sprayer Relationship Specialty Start Date End Date Emily Tee MD [address] [place] [address] PCP - General Internal Medicine 04/19/13 documented as of this encounter
--- OUTSIDE RECORDS SUMMARY | 2023-08-19 11:21 | XMS_ITS | Encounter Summary ---
Author Name Unknown Organization [place] Address [address] [place] [address]. [place] [address] Care Team Providers Care Monomer Recovery Operator Name Role Phone Emily Tee MD Primary Care Provid er Encounter Details Date Type Department Care Team (Latest Contact Info) Description 05/31/2023 Travel Social History Tobacco Use Types Packs/Day [...] on filedocumented in this encounter Care Teams Monomer Recovery Operator Relationship Specialty Start Date End Date Emily Tee MD [address] [place] [address] PCP - General Internal Medicine 04/19/13 documented as of this encounter
[2023-08-19 11:25] LABS: Basophils Absolute Auto 0.02 K/uL (0.00-0.30); Basophils Percent Auto 0.2 % (0.0-3.0); Eosinophils Absolute Auto 0.07 K/uL (0.00-0.50); Eosinophils Percent Auto 0.7 % (0.0-7.0); Hemoglobin* 14.9 gm/dL (12.0-16.0); Immature Granulocytes Abs Auto 0.02 K/uL (0.00-0.30); Immature Granulocytes Pct Auto 0.2 %; Lymphocytes Absolute Auto 2.32 K/uL (0.90-2.90); Lymphocytes Percent Auto 21.8 % (20-44); Mean Corpuscular HGB Conc 33 gm/dL (32-36); Mean Corpuscular Hemoglobin 29 pg (26-34); Mean Corpuscular Volume 88 fL (80-100); Monocytes Percent Auto 6.7 % (0.0-11.0); Neutrophils Absolute Auto 7.48 K/uL (1.7-7.0); Neutrophils Percent Auto 70.4 % (42.0-72.0); Platelet Count* 286 K/uL (140-440); RDW Coefficient of Variation % 12.5 % (11.5-15.5); Red Blood Count 5.14 m/uL (4.00-5.20); White Blood Count* 10.62 K/uL (4.50-11.00)
[2023-08-19 11:28] LABS: Slide Review Reflex No
[2023-08-19 11:32] LABS: Albumin* 4.5 g/dL (3.3-5.0); Chloride* 106 mmol/L (96-114)
[2023-08-19 11:33] LABS: Potassium* 3.6 mmol/L (3.6-5.1); Sodium* 141 mmol/L (135-149)
[2023-08-19 11:35] LABS: Alkaline Phosphatase* 44 U/L (40-150); Anion Gap 8 mEq/L (7-15); Aspartate Amino Transferase* 15 U/L (12-35); Bilirubin Total* 0.3 mg/dL (0.1-1.5); Blood Urea Nitrogen* 20 mg/dL (5-24); Carbon Dioxide* 27 mmol/L (20-32); Creatinine* 0.8 mg/dL (0.5-1.5); Est. Creatinine Clearance* 100.62; Estimated Glomerular Filt Rate 97 ml/min; Total Protein* 7.6 g/dL (6.0-8.3)
[2023-08-19 11:36] LABS: Alanine Aminotransferase* 15 U/L (4-35); Calcium* 9.4 mg/dL (8.4-10.6); Glucose* 87 mg/dL (60-115)
[2023-08-19 12:06] LABS: Erythrocyte SedimentationRate* 6 mm/hr (2-20)
[2023-08-19 13:40] LABS: Appearance Urine Clear (Clear); Bilirubin Urine Negative (Negative); Blood Urine Negative (Negative); Color Urine Yellow (Yellow); Glucose Urine Negative (Negative); Ketones Urine Negative (Negative); Leukocyte Esterase Urine Negative (Negative); Nitrite Urine Negative (Negative); Protein Urine Negative (Negative); Specific Gravity Urine >= 1.030 (1.000-1.030); Urobilinogen Urine 0.2 (0.2-1.0)
[2023-08-19 13:44] LABS: Ur HCG Qualitative* Negative (Negative)
[2023-08-19 13:51] LABS: RBC Urine 0-2 (0-2); Squamous Epithelial Cell Urine Moderate (None-Few); WBC Urine 0-2 (0-5)
[2023-08-19 13:52] LABS: Calcium Oxalate Crystals Urine Many
[2023-08-21 07:37] LABS: Anti-Nuclear Ab(ANA)IgG ELISA None Detected (None Detected)
== END 2023-08-19 14:09 | disposition home or self-care (01) ==
PROVIDERS: Emergency Provider Student in an Organized Health Care Education/Training Program
DX: R21 Rash and other nonspecific skin eruption (principal)
CPT/HCPCS: 36415; 80053; 81001; 81025; 84443; 85025; 85651; 86039; 99283

== ENCOUNTER 2023-08-26 14:09 | Outpatient (CLI) | payer OTHER, SELFPAY ==
--- OUTSIDE RECORDS SUMMARY | 2023-08-26 14:21 | XMS_ITS | Referral Summary ---
Author Name Unknown Organization [place] Address [facility] [place] [address] Care Team Providers Care Smoking Pipes Cleaner Name Role Phone Emily Tee MD Primary Care Provid er Encounters Date Type Department Care Team Description 06/22/2023 Travel 06/22/2023 11:00 AM MOTOR COACH TOUR OPERATOR Office Visit [facility] [id number] [place] [phone] Rhina Wilcox MD Cellulitis of face (Primary Dx); Erysipelas; Infective otitis externa, bilateral 05/31/2023 Travel 05/31/2023 11:00 AM CDT Office Visit [facility] [id number] [place] [address] [phone] Sondra Alex PA-C Erysipelas (Primary Dx); Seborrheic [...] Comments Blood Pressure 134/86 06/22/2023 10:19 AM MOTOR COACH TOUR OPERATOR Pulse 101 06/22/2023 10:19 AM MOTOR COACH TOUR OPERATOR Temperature 36.4 ??C (97.6 ??F) 06/22/2023 10:[address] Respiratory Rate 16 10/22/2022 12:35 PM CDT Oxygen Saturation 98% 06/22/2023 10:19 AM MOTOR COACH TOUR OPERATOR Inhaled Oxygen Concentration - - Weight 88.5 kg (195 lb) 06/22/2023 10:19 AM MOTOR COACH TOUR OPERATOR Height 175.3 cm (5' 9) 06/22/2023 10:19 AM MOTOR COACH TOUR OPERATOR Body Mass Index 28.8 06/22/2023 10:19 AM MOTOR COACH TOUR OPERATOR Plan of Treatment Not on file Procedures Procedure Name Priority Date/Time Associated Diagnosis Comments WBC AND DIFFERENTIAL Routine 06/22/2023 10:43 AM MOTOR COACH TOUR OPERATOR Cellulitis of face WBC AND DIFFERENTIAL Routine 06/22/2023 10:43 AM MOTOR COACH TOUR OPERATOR Cellulitis of face from Last 3 Months Results * WBC and Differential (06/22/2023 10:43 AM MOTOR COACH TOUR OPERATOR) WBC Count 10.0 4.0 - 11.0 10e3/uL 06/22/2023 10:45 AM MOTOR COACH TOUR OPERATOR [facility] % Neutrophils 72 % 06/22/2023 10:45 AM MOTOR COACH TOUR OPERATOR [facility] % Lymphocytes 20 % 06/22/2023 10:45 AM MOTOR COACH TOUR OPERATOR [facility] % Monocytes 6 % 06/22/2023 10:45 AM MOTOR COACH TOUR OPERATOR [facility] % Eosinophils 1 % 06/22/2023 10:45 AM MOTOR COACH TOUR OPERATOR [facility] % Basophils 0 % 06/22/2023 10:45 AM MOTOR COACH TOUR OPERATOR [facility] % Immature Granulocytes 0 % 06/22/2023 10:45 AM MOTOR COACH TOUR OPERATOR [facility] Absolute Neutrophils 7.2 1.6 - 8.3 10e3/uL 06/22/2023 10:45 AM MOTOR COACH TOUR OPERATOR [facility] Absolute Lymphocytes 2.0 0.8 - 5.3 10e3/uL 06/22/2023 10:45 AM MOTOR COACH TOUR OPERATOR [facility] Absolute Monocytes 0.6 0.0 - 1.3 10e3/uL 06/22/2023 10:45 AM MOTOR COACH TOUR OPERATOR [facility] Absolute Eosinophils 0.1 0.0 - 0.7 10e3/uL 06/22/2023 10:45 AM MOTOR COACH TOUR OPERATOR [facility] Absolute Basophils 0.0 0.0 - 0.2 10e3/uL 06/22/2023 10:45 AM MOTOR COACH TOUR OPERATOR [facility] Absolute Immature Granulocytes 0.0 <=0.4 10e3/uL 06/22/2023 10:45 AM MOTOR COACH TOUR OPERATOR [facility] Blood BLOOD SPECIMEN / Unknown Venipuncture / Unknown 06/22/2023 10:43 AM MOTOR COACH TOUR OPERATOR 06/22/2023 10:43 AM MOTOR COACH TOUR OPERATOR Rhina Wilcox MD LAB - BLOOD ORDERABL ES [facility] [address] [facility] (no room number, 1st floor of clinic) [place] [address], [facility] [phone] from Last 3 Months Care Teams Smoking Pipes Cleaner Relationship Specialty Start Date End Date Emily Tee MD [address] [place] [address] PCP - General Internal Medicine 04/19/13
--- OUTSIDE RECORDS SUMMARY | 2023-08-26 14:21 | XMS_ITS | Encounter Summary ---
Author Name Unknown Organization [place] Address [facility] [place] [address] Care Team Providers Care Hat Checker Name Role Phone Emily Tee MD Primary Care Provid er Reason for Visit * Reason Comments Pharyngitis Pt reports exposure to strep. ST, swollen lymph nodes. Encounter Details Date Type Department Care Team (Late st Contact Info) Description 10/22/2022 12:05 PM CDT Office Visit [facility] Ur[facility] [address] [phone] Sondra Alex PA-C Strep pharyngitis (Primary Dx) [...] PA-C LAB - MICRO GENERAL ORDERABLES LABORATORY [facility] [address] [facility] (no room number, 1st floor of clinic) [place] [address], [facility] [phone] documented in this encounter Visit Diagnoses Diagnosis Strep pharyngitis- Primary Streptococcal sore throat documented in this encounter Care Teams Hat Checker Relationship Specialty Start Date End Date Emily Tee MD [address] [place] [address] PCP - General Internal Medicine 04/19/13 documented as of this encounter
--- OUTSIDE RECORDS SUMMARY | 2023-08-26 14:21 | XMS_ITS | Encounter Summary ---
Author Name Unknown Organization [place] Address [address] [facility] [place] [address] Care Team Providers Care Manager Federal Name Role Phone Emily Tee MD Primary Care Provid er Reason for Visit * Reason Comments Urgent Care Gradual facial swell ing with pain and stiff neck over the last 4d. Pt took Benadryl and Ibuprofen last night with no improvement. Encounter Details Date Type Department Care Team (Late st Contact Info) Description 05/31/2023 11:00 AM CDT Office Visit [facility] [place] [address] [place] [phone] Sondra Alex, FABRIZIO Erysipelas (Primary Dx); Seborrheic [...] unspecified documented in this encounter Care Teams Manager Federal Relationship Specialty Start Date End Date Emily Tee MD [address] [place], [place] [address] PCP - General Internal Medicine 04/19/13 documented as of this encounter
--- OUTSIDE RECORDS SUMMARY | 2023-08-26 14:21 | XMS_ITS | Clinical Summary ---
Author Name Unknown Organization [place] Address [facility] [place] [place] [address] Care Team Providers Care Puff Iron Operator Name Role Phone Emily Tee MD [...] Department Care Team Description 06/22/2023 11:00 AM SALVAGE SUPERVISOR Office Visit [facility] [phone] [place] [phone] Rhina Wilcox MD Cellulitis of face (Primary Dx); Erysipelas; Infective otitis externa, bilateral 06/22/2023 Travel 05/31/2023 11:00 AM CDT Office Visit [facility] [address] [place] [phone] Sondra Alex, FABRIZIO Erysipelas (Primary Dx); Seborrheic [...] Comments Blood Pressure 134/86 06/22/2023 10:19 AM SALVAGE SUPERVISOR Pulse 101 06/22/2023 10:19 AM SALVAGE SUPERVISOR Temperature 36.4 ??C (97.6 ??F) 06/22/2023 10:[address] Respiratory Rate 16 10/22/2022 12:35 PM CDT Oxygen Saturation 98% 06/22/2023 10:19 AM SALVAGE SUPERVISOR Inhaled Oxygen Concentration - - Weight 88.5 kg (195 lb) 06/22/2023 10:19 AM SALVAGE SUPERVISOR Height 175.3 cm (5' 9) 06/22/2023 10:19 AM SALVAGE SUPERVISOR Body Mass Index 28.8 06/22/2023 10:19 AM SALVAGE SUPERVISOR Plan of Treatment Health Maintenance Due Date [...] WBC AND DIFFERENTIAL Routine 06/22/2023 10:43 AM SALVAGE SUPERVISOR Cellulitis of face WBC AND DIFFERENTIAL Routine 06/22/2023 10:43 AM SALVAGE SUPERVISOR Cellulitis of face from Last 3 Months Results * WBC and Differential (06/22/2023 10:43 AM SALVAGE SUPERVISOR) WBC Count 10.0 4.0 - 11.0 10e3/uL 06/22/2023 10:45 AM SALVAGE SUPERVISOR [facility] % Neutrophils 72 % 06/22/2023 10:45 AM SALVAGE SUPERVISOR [facility] % Lymphocytes 20 % 06/22/2023 10:45 AM SALVAGE SUPERVISOR [facility] % Monocytes 6 % 06/22/2023 10:45 AM SALVAGE SUPERVISOR [facility] % Eosinophils 1 % 06/22/2023 10:45 AM SALVAGE SUPERVISOR [facility] % Basophils 0 % 06/22/2023 10:45 AM SALVAGE SUPERVISOR [facility] % Immature Granulocytes 0 % 06/22/2023 10:45 AM SALVAGE SUPERVISOR [facility] Absolute Neutrophils 7.2 1.6 - 8.3 10e3/uL 06/22/2023 10:45 AM SALVAGE SUPERVISOR [facility] Absolute Lymphocytes 2.0 0.8 - 5.3 10e3/uL 06/22/2023 10:45 AM SALVAGE SUPERVISOR [facility] Absolute Monocytes 0.6 0.0 - 1.3 10e3/uL 06/22/2023 10:45 AM SALVAGE SUPERVISOR [facility] Absolute Eosinophils 0.1 0.0 - 0.7 10e3/uL 06/22/2023 10:45 AM SALVAGE SUPERVISOR [facility] Absolute Basophils 0.0 0.0 - 0.2 10e3/uL 06/22/2023 10:45 AM SALVAGE SUPERVISOR [facility] Absolute Immature Granulocytes 0.0 <=0.4 10e3/uL 06/22/2023 10:45 AM SALVAGE SUPERVISOR [facility] Blood BLOOD SPECIMEN / Unknown Venipuncture / Unknown 06/22/2023 10:43 AM SALVAGE SUPERVISOR 06/22/2023 10:43 AM SALVAGE SUPERVISOR Rhina Wilcox MD LAB - BLOOD ORDERABL ES [facility] [address] [facility] (no room number, 1st floor of clinic) [place] [address], [facility] [phone] from Last 3 Months Care Teams Puff Iron Operator Relationship Specialty Start Date End Date Emily Tee MD [address] [place] [address] PCP - General Internal Medicine 04/19/13
--- OUTSIDE RECORDS SUMMARY | 2023-08-26 14:21 | XMS_ITS | Encounter Summary ---
Author Name Unknown Organization [place] Address [address] [place] [address]. [place] [address] Care Team Providers Care Court Liaison Name Role Phone Emily Tee MD Primary [...] on filedocumented in this encounter Care Teams Court Liaison Relationship Specialty Start Date End Date Emily Tee MD [address] [place] [address] PCP - General Internal Medicine 04/19/13 documented as of this encounter
--- OUTSIDE RECORDS SUMMARY | 2023-08-26 14:21 | XMS_ITS | Encounter Summary ---
Author Name Unknown Organization [place] Address [address] [place] [address] Care Team Providers Care Therapy Manager Name Role Phone Emily Tee MD Primary Care Provid er Reason for Visit * Reason Comments Urgent Care See 05/31/23 OV. F/U on Erysipelas on face; pt says condition cleared after Amox course initially but came back. F/U on Jonah Derm on ears; marginal improvement with TMC. Encounter Details Date Type Department Care Team (Late st Contact Info) Description 06/22/2023 11:00 AM STENO POOL SUPERVISOR Office Visit [facility] [place] [address] [place] [phone] Rhina Wilcox MD [address] [facility] [address] [place] [id number] Cellulitis of face (Primary Dx); Erysipelas; Infective [...] Comments Blood Pressure 134/86 06/22/2023 10:19 AM STENO POOL SUPERVISOR Pulse 101 06/22/2023 10:19 AM STENO POOL SUPERVISOR Temperature 36.4 ??C (97.6 ??F) 06/22/2023 10:[address] Respiratory Rate - - Oxygen Saturation 98% 06/22/2023 10:19 AM STENO POOL SUPERVISOR Inhaled Oxygen Concentration - - Weight 88.5 kg (195 lb) 06/22/2023 10:19 AM STENO POOL SUPERVISOR Height 175.3 cm (5' 9) 06/22/2023 10:19 AM STENO POOL SUPERVISOR Body Mass Index 28.8 06/22/2023 10:19 AM STENO POOL SUPERVISOR documented in this encounter Patient Instructions * Patient Instructions* Rhina Wilcox MD - 06/22/2023 11:00 AM STENO POOL SUPERVISOR Augmentin twice daily for 14 days. Follow up with piercing studio to discuss clipping of earring on L side. Ofloxacin drops in both ears 3 times daily for 7 days. O POOL SUPERVISOR documented in this encounter Progress Notes * [...] Procedure Abnormality Status --------- ------ WBC and Differential[[id number]] Final result Please view results for these tests on the individual orders. O POOL SUPERVISOR documented in this encounter Plan of Treatment Not on file documented as of this encounter Procedures Procedure Name Priority Date/Time Associated Diagnosis Comments WBC AND DIFFERENTIAL Routine 06/22/2023 10:43 AM STENO POOL SUPERVISOR Cellulitis of face WBC AND DIFFERENTIAL Routine 06/22/2023 10:43 AM STENO POOL SUPERVISOR Cellulitis of face documented in this encounter Results * WBC and Differential (06/22/2023 10:43 AM STENO POOL SUPERVISOR) WBC Count 10.0 4.0 - 11.0 10e3/uL 06/22/2023 10:45 AM STENO POOL SUPERVISOR [facility] % Neutrophils 72 % 06/22/2023 10:45 AM STENO POOL SUPERVISOR [facility] % Lymphocytes 20 % 06/22/2023 10:45 AM STENO POOL SUPERVISOR [facility] % Monocytes 6 % 06/22/2023 10:45 AM STENO POOL SUPERVISOR [facility] % Eosinophils 1 % 06/22/2023 10:45 AM STENO POOL SUPERVISOR [facility] % Basophils 0 % 06/22/2023 10:45 AM STENO POOL SUPERVISOR [facility] % Immature Granulocytes 0 % 06/22/2023 10:45 AM STENO POOL SUPERVISOR [facility] Absolute Neutrophils 7.2 1.6 - 8.3 10e3/uL 06/22/2023 10:45 AM STENO POOL SUPERVISOR [facility] Absolute Lymphocytes 2.0 0.8 - 5.3 10e3/uL 06/22/2023 10:45 AM STENO POOL SUPERVISOR [facility] Absolute Monocytes 0.6 0.0 - 1.3 10e3/uL 06/22/2023 10:45 AM STENO POOL SUPERVISOR [facility] Absolute Eosinophils 0.1 0.0 - 0.7 10e3/uL 06/22/2023 10:45 AM STENO POOL SUPERVISOR [facility] Absolute Basophils 0.0 0.0 - 0.2 10e3/uL 06/22/2023 10:45 AM STENO POOL SUPERVISOR [facility] Absolute Immature Granulocytes 0.0 <=0.4 10e3/uL 06/22/2023 10:45 AM STENO POOL SUPERVISOR [facility] Blood BLOOD SPECIMEN / Unknown Venipuncture / Unknown 06/22/2023 10:43 AM STENO POOL SUPERVISOR 06/22/2023 10:43 AM STENO POOL SUPERVISOR Rhina Wilcox MD LAB - BLOOD ORDERABL ES [facility] [place] [facility] [address] [facility] (no room number, 1st floor of clinic) [place] [address], [facility] [phone] documented in this encounter Visit Diagnoses Diagnosis Cellulitis of face- Primary Cellulitis and abscess of face Erysipelas Infective otitis externa, bilateral documented in this encounter Care Teams Therapy Manager Relationship Specialty Start Date End Date Emily Tee MD [address] [place] [address] PCP - General Internal Medicine 04/19/13 documented as of this encounter
--- OUTSIDE RECORDS SUMMARY | 2023-08-26 14:21 | XMS_ITS | Encounter Summary ---
Author Name Unknown Organization [place] Address [address] [place] [address]. [place] [address] Care Team Providers Care Processor Grain Name Role Phone Emily Tee MD Primary [...] on filedocumented in this encounter Care Teams Processor Grain Relationship Specialty Start Date End Date Emily Tee MD [address] [place] [address] PCP - General Internal Medicine 04/19/13 documented as of this encounter
--- OUTSIDE RECORDS SUMMARY | 2023-08-26 14:21 | XMS_ITS | Encounter Summary ---
Author Name Unknown Organization [place] Address [address] [place] [address]. [place] [address] Care Team Providers Care Business Continuity Manager Name Role Phone Emily Tee MD [...] on filedocumented in this encounter Care Teams Business Continuity Manager Relationship Specialty Start Date End Date Emily Tee MD [address] [place] [address] PCP - General Internal Medicine 04/19/13 documented as of this encounter
--- OUTSIDE RECORDS SUMMARY | 2023-08-26 14:22 | XMS_ITS | Clinical Summary ---
Author Name Unknown Organization [facility] Address [place], [place] [address] Care Team Providers Care Investment Manager Name Role Phone [employer] Primary Care Provider [phone] Allergies No known active allergies Medications Medication [...] 7 8 DEWIT Z,BB- Brittanie galloway Delivery Location:[facility]) Comments:OR staff pres ent on floor 03/13 35w 4d 2.08 kg (4 lb 9.4 oz) F Vag Epidu ral N Mary ng 4 8 DEWIT Z,BGMinerva B DELANEY ANY Dr. Zena galloway Complications:None Delivery Location:[facility] ([facility]) Last Filed Vital Signs [...] 8:23 AM 02/26/2015 4:21 PM Care Teams Investment Manager Relationship Specialty Start Date End Date [facility] [address] [facility] [place] [address] PCP - General 03/10/17
--- OUTSIDE RECORDS SUMMARY | 2023-08-26 14:22 | XMS_ITS | Encounter Summary ---
Author Name Unknown Organization [facility] Address [address] [facility] [place] [address] Care Team Providers Care Founder Name Role Phone Emily Tee MD Primary Care Provid er Reason for Visit * Reason Onset Date Comments Outreach 05/14/2014 PHS Att 1,2 Encounter Details Date Type Department Care Team (Late st Contact Info) Description 05/14/2014 Telephone [facility] [address] [place] [address] Emily Tee MD [address] [place] [address] Outreach (PHS Att 1,2) Social [...] Attempt 2 Message on voicemail Comments: Outreach Box Tender Nusrat Tejeda * Telephone Encounter - Carlos Hernández - 05/14/2014 11:54 AM CDT 05/14/2014 Call Regarding Preventive Health Screening Cervical/PAP Attempt 1 Message on voicemail Comments: Outreach Box Tender rbg documented in this encounter Plan of Treatment Not on file documented as of this encounter Visit Diagnoses Not on filedocumented in this encounter Care Teams Founder Relationship Specialty Start Date End Date Emily Tee MD [address] [place] [address] PCP - General Internal Medicine 04/19/13 documented as of this encounter
== END 2023-08-26 14:10 | disposition home or self-care (01) ==
PROVIDERS: Visit Provider Dermatology
DX: R21 Rash and other nonspecific skin eruption (principal); L71.9 Rosacea, unspecified
CPT/HCPCS: 86039; 86225; 86235

== ENCOUNTER 2024-04-19 15:14 | Outpatient (CLI) | payer OTHER, SELFPAY ==
[2024-04-19 17:59] LABS: Lab Add On Test New Spec Needed
[2024-04-23 11:13] LABS: HSV 1 Subtype by PCR Not Detected; HSV 2 Subtype by PCR Not Detected; Herpes Simplex Subtype Source Vesicle
== END 2024-04-19 15:15 | disposition home or self-care (01) ==
PROVIDERS: PCP Emergency Medicine; Visit Provider Emergency Medicine
DX: R21 Rash and other nonspecific skin eruption (principal)
CPT/HCPCS: 86140; 87070; 87186; 87529

== ENCOUNTER 2024-05-09 11:08 | Outpatient (CLI) | payer OTHER, SELFPAY ==
--- OUTSIDE RECORDS SUMMARY | 2024-05-09 11:10 | XMS_ITS | Referral Summary ---
Author Organization [place] Address [address] [place] [address]. [place] [address] Care Team Providers Care Stem Shaper Name Role Phone Emily Tee MD Primary Care Provid er Allergies No known active allergies Medications Medication Sig Dispensed Refills Start Date End Date Status Acetaminophen (TYLENOL 8 HOUR PO) Activ e triamcinolone (KENALOG) 0.1 % external [...] Years Used Date Smoking Tobacco: Former Cigarettes Q uit: 04/09/2013 Smokeless Tobacco: Never Tobacco [...] Comments Blood Pressure 134/86 06/22/2023 10:19 AM BUMBOATER Pulse 101 06/22/2023 10:19 AM BUMBOATER Temperature 36.4 ??C (97.6 ??F) 06/22/2023 10:[address] Respiratory Rate 16 10/22/2022 12:35 PM CDT Oxygen Saturation 98% 06/22/2023 10:19 AM BUMBOATER Inhaled Oxygen Concentration - - Weight 88.5 kg (195 lb) 06/22/2023 10:19 AM BUMBOATER Height 175.3 cm (5' 9) 06/22/2023 10:19 AM BUMBOATER Body Mass Index 28.8 06/22/2023 10:19 AM BUMBOATER Plan of Treatment Not on file Procedures Procedure Name Priority Date/Time Associated Diagnosis Comments ABSTRACT PAP ([facility] EXTERNAL RESULT) Routine 01/07/2010 DIAGNOSIS NOT YET DEFINED [facility] COMPREHENSIVE METABOLIC PANEL Routine 09/11/2009 1:48 PM BUMBOATER Abdominal Pain, Other Specified Site from Last 3 Months or Most Recently Relevant to Health Maintenance Results * ABSTRACT PAP-NO CHARGE (01/07/2010) Impressions MISYS - 01/07/2010 Information from office visit dated: 04/19/2013 ??Please, abstract pap from 01/16 @ [facility]. Provider Abstract LAB - HIM EXTERNAL R ESULT MISYS * (ABNORMAL) A.M.A. COMPREHENSIVE MET.PANEL (09/11/2009 1:48 PM BUMBOATER) Sodium 143 133 - 144 mmol/L [facility] Potassium 3.7 3.4 - 5.3 mmol/L [facility] Chloride 107 94 - 109 mmol/L [facility] Carbon Dioxide 24 20 - 32 mmol/L [facility] Anion Gap 12 6 - 17 mmol/L [facility] Glucose 103(H) 60 - 99 mg/dL [facility] Urea Nitrogen 7 5 - 24 mg/dL [facility] Creatinine 0.82 0.52 - 1.04 mg/dL [facility] Comment:New IDMS-traceable c alibration beginning 12/08/07 GFR Estimate 86 >60 mL/min/1.[address] [facility] GFR Estimate If Black >90 >60 mL/min/1.[address] [facility] Calcium 9.2 8.5 - 10.4 mg/dL [facility] Bilirubin Total 0.7 0.2 - 1.3 mg/dL [facility] Albumin 4.8 3.9 - 5.1 g/dL [facility] Comment:Reference range hoyt ged on 05/01/2008. Protein Total 7.9 6.8 - 8.8 g/dL [facility] Comment:As of 07, refer ence range reflects plasma specimen type. Alkaline Phosphatase 49 40 - 150 U/L [facility] ALT 11 0 - 50 U/L [facility] AST 19 0 - 45 U/L [facility] 09/11/2009 1:48 PM BUMBOATER 09/11/2009 1:49 PM BUMBOATER Summer Pearson MD LABORATORY [facility] from Last 3 Months or Most Recently Relevant to Health Maintenance Care Teams Stem Shaper Relationship Specialty Start Date End Date Emily Tee MD [address] [place] [address] PCP - General Internal Medicine 04/19/13
--- OUTSIDE RECORDS SUMMARY | 2024-05-09 11:10 | XMS_ITS | Clinical Summary ---
Author Organization [place] [facility] Address [address] [place] [address]. [place] [address] Care Team Providers Care Taping Supervisor Name Role Phone Emily Tee MD Primary [...] Comments Blood Pressure 134/86 06/22/2023 10:19 AM BLASTING ENTRY SPECIALIST Pulse 101 06/22/2023 10:19 AM BLASTING ENTRY SPECIALIST Temperature 36.4 ??C (97.6 ??F) 06/22/2023 10:[address] Respiratory Rate 16 10/22/2022 12:35 PM CDT Oxygen Saturation 98% 06/22/2023 10:19 AM BLASTING ENTRY SPECIALIST Inhaled Oxygen Concentration - - Weight 88.5 kg (195 lb) 06/22/2023 10:19 AM BLASTING ENTRY SPECIALIST Height 175.3 cm (5' 9) 06/22/2023 10:19 AM BLASTING ENTRY SPECIALIST Body Mass Index 28.8 06/22/2023 10:19 AM BLASTING ENTRY SPECIALIST Plan of Treatment Health Maintenance Due Date Last Done Comments ADVANCE CARE PLANNING 1985 ANNUAL REVIEW OF HM ORDERS 1985 YEARLY PREVENTIVE VISIT 1985 HIV SCREENING 2000 HEPATITIS C SCREENING 12/05/2003 HEPATITIS B IMMUNIZATION (1 of 3 - 19+ 3-dose series) 2004 HPV IMMUNIZATION (3 - 3-dose series) 07/22/2009 04/29/2009, 11/16/2008 GLUCOSE 09/11/2012 09/11/2009, 09/03/2008 PAP 01/07/2013 01/07/2010 PHQ-2 (once per calendar year) 2023 COVID-19 Vaccine ( - season) 2024 INFLUENZA VACCINE (#1) 2024 09/10/1986 DTAP/TDAP/TD IMMUNIZATION (10 - Td or Tdap) 01/15/2025 01/15/2015, 07/02/2012, 08/09/2009, Additional history exists MENINGITIS IMMUNIZATION Aged Out [...] Priority Date/Time Associated Diagnosis Comments ABSTRACT PAP ([facility] EXTERNAL RESULT) Routine 01/07/2010 DIAGNOSIS NOT YET DEFINED HCL COMPREHENSIVE METABOLIC PANEL Routine 09/11/2009 1:48 PM BLASTING ENTRY SPECIALIST Abdominal Pain, Other Specified Site from Last 3 Months or Most Recently Relevant to Health Maintenance Results * ABSTRACT PAP-NO CHARGE (01/07/2010) Impressions MISYS - 01/07/2010 Information from office visit dated: 04/19/2013 ??Please, abstract pap from 01/16 @ [facility]. Provider Abstract LAB - HIM EXTERNAL R ESULT FERNANDO * (ABNORMAL) A.M.A. COMPREHENSIVE MET.PANEL (09/11/2009 1:48 PM BLASTING ENTRY SPECIALIST) Sodium 143 133 - 144 mmol/L [facility] Potassium 3.7 3.4 - 5.3 mmol/L [facility] Chloride 107 94 - 109 mmol/L [facility] Carbon Dioxide 24 20 - 32 mmol/L [facility] Anion Gap 12 6 - 17 mmol/L [facility] Glucose 103(H) 60 - 99 mg/dL [facility] Urea Nitrogen 7 5 - 24 mg/dL [facility] Creatinine 0.82 0.52 - 1.04 mg/dL [facility] Comment:New IDMS-traceable c alibration beginning 12/08/07 GFR Estimate 86 >60 mL/min/1.7 m2 [facility] GFR Estimate If Black >90 >60 mL/min/1.7 m2 [facility] Calcium 9.2 8.5 - 10.4 mg/dL [facility] Bilirubin Total 0.7 0.2 - 1.3 mg/dL [facility] Albumin 4.8 3.9 - 5.1 g/dL [facility] Comment:Reference range hoyt ged on 05/01/2008. Protein Total 7.9 6.8 - 8.8 g/dL [facility] Comment:As of 07, refer ence range reflects plasma specimen type. Alkaline Phosphatase 49 40 - 150 U/L [facility] ALT 11 0 - 50 U/L [facility] AST 19 0 - 45 U/L [facility] 09/11/2009 1:48 PM BLASTING ENTRY SPECIALIST 09/11/2009 1:49 PM BLASTING ENTRY SPECIALIST Summer Pearson MD LABORATORY [facility] from Last 3 Months or Most Recently Relevant to Health Maintenance Care Teams Taping Supervisor Relationship Specialty Start Date End Date Emily Tee MD [address] [place] [address] PCP - General Internal Medicine 04/19/13
--- OUTSIDE RECORDS SUMMARY | 2024-05-09 11:11 | XMS_ITS | Clinical Summary ---
Author Organization [facility] Address [place], [place] [address] Care Team Providers Care Vamp Strap Ironer Name Role Phone Roland Work4 Primary Care Provider [phone] Allergies No known active allergies Medications Medication [...] 3200 mg in 24 hours. 40 tablet 03/14/2018 Active Breast Pump - PurchaseIndications :Dichorionic diamniotic twin in third trimester For home use. TWINS 1 Device 03/14/2018 Active copper intrauterine device (PARAGARD) Inject [...] 03/13/2018 Hidradenitis suppurativa 07/26/2014 labor with delivery Encounters Date Type Department Care Team Description 04/21/2024 Lab Requisition [facility] [phone] Unknown, Doctor from Last 3 Months Immunizations Name Administration Dates Next Due DTaP [...] Outcome GA Total Labor Labor/2nd/3rd Weight Sex Type Anes PTL Era A1 A5 Name Clin 2014 Term 38w 1d 7h 30m/3h 25m/0h 49m 3.12 kg (6 lb 14 oz) M Vag Epidur al N Livin g 9 9 Brice 2017 35w 4d 2.79 kg (6 lb 2.4 oz) M Vag Epidur al Livin g [address] Delivery Location:[facility]) Comments:OR staff pres ent on floor 2017 35w 4d 2.08 kg (4 lb 9.4 oz) F Vag Epidur al N Livin g [address] Complications:None Delivery Location:[facility] ([facility]) Last Filed Vital Signs Vital [...] Health Maintenance Due Date Last Done Comments Hepatitis C screening for age 18-79 12/05/2003 Depression screening for age 12+ 05/19/2019 05/19/2018, 05/19/2018, 11/26/2017, Additional history exists Pap test for age 21-65 10/13/2019 10/12/2016, 2013 BMI (ht and wt on same day) for age 18+ 10/21/2019 10/20/2018, 05/19/2018, 01/21/2018, Additional history exists COVID-19 vaccine series ( season) 2024 Influenza for age 9-49 04/09/2024 09/10/1986 Tetanus booster 01/15/2025 01/15/2015, 06/10, 04/23/2008, Additional history exists Tdap Completed 01/15/2015, 06/10, 04/23/2008 HIV for age 15-65 Completed 09/07/2017, 07/26/2014 Pneumococcal series for age 6-64 Aged Out No longer eligible based on patient's age to complete this topic Procedures Procedure Name Priority Date/Time Associated Diagnosis Comments REFERRAL SUSCEPTIBILITY Routine 04/19/20 24 3:50 PM CDT ANTI HIV 1/2 Routine 09/07/2017 11:31 AM STACK CLERK Supervision of high risk in first trimester MANAGER SUPPLIER THIN PREP PAP SCREEN IMAGED Routine 10/12/2016 3:27 PM STACK CLERK Pap smear for cervical cancer screening from Last 3 Months or Most Recently Relevant to Health Maintenance Results * (ABNORMAL) REFERRAL SUSCEPTIBILITY (04/19/2024 3:50 PM CDT) CULTURE RESULT(A) 04/24/2024 7:18 AM CDT [facility]AT[facility] CULTURE Streptococcus dysgalactiae (Beta Strep group C or G) 04/24/2024 7:[address] [facility] Other SPECIMEN FROM WOUND / Unknown Client Collect / Unknown 04/19/2024 3:50 PM CDT 04/21/2024 10:30 PM CDT Narrative Organism Antibiotic Method Susceptibility Streptococcus dysgalactiae ( Beta Strep group C or G) PENICILLIN <=0.06: S Streptococcus dysgalactiae ( Beta Strep group C or G) CEFTRIAXONE <=0.12: S Streptococcus dysgalactiae ( Beta Strep group C or G) ERYTHROMYCIN <=0.12: S Streptococcus dysgalactiae ( Beta Strep group C or G) CLINDAMYCIN <=0.25: S Streptococcus dysgalactiae ( Beta Strep group C or G) VANCOMYCIN 0.5: S Streptococcus dysgalactiae ( Beta Strep group C or G) AMPICILLIN <=0.25: S Streptococcus dysgalactiae ( Beta Strep group C or G) CLARITHROMYCIN S Doctor Unknown [facility] [address] [place] [address], * ANTI HIV 1/2 (09/07/2017 11:31 AM STACK CLERK) HIV-1/HIV-2 ANTIBODY Non-Reacti ve Non-Reacti ve 09/07/2017 8:11 PM STACK CLERK [facility] Blood BLOOD SPECIMEN / Unknown Venipuncture / Unknown 09/07/2017 11:31 AM STACK CLERK 09/07/2017 11:31 AM STACK CLERK Narrative [facility] - 09/07/2017 8:11 PM STACK CLERK HIV-1 p24 and HIV-1/HIV-2 Ab not detected Melanie Irene MD SEND OUTS [facility] [address] [place] [address], * MANAGER SUPPLIER THIN PREP PAP SCREEN IMAGED (10/12/2016 3:27 PM STACK CLERK) Case Report Gynecologic Cytology Report ? Case: [id number] ? Authorizing Provider: ??Nathaniel, Sivan Quiñones, LAKESHIA ? Collected: ? 10/12/2016 1527 ? Ordering Location: ? [facility] ?? Received: ?10/12/2016 1528 ? Clinic ? First Screen: ?Orin Funez ? Specimen: ?MANAGER SUPPLIER ThinPrep Vial Screening, Cervical ? 10/21/2016 2:03 PM CDT [facility] INTERPRETATION/ RESULT NEGATIVE FOR INTRAEPITHELIAL LESION OR MALIGNANCY (NIL) (none) 10/21/2016 2:03 PM CDT [facility] IMEN ADEQUACY Satisfactory for evaluation Endocervical component present 10/21/2016 2:03 PM CDT [facility] HPV REQUEST HPV if ASCUS 10/21/2016 2:03 PM CDT [facility] Date of LMP 10/07/2016 10/21/2016 2:03 PM CDT [facility] Last Pap Date 07/26/14 10/21/2016 2:03 PM CDT [facility] Last Pap Result NIL 7 2:03 PM CDT [facility] Abnormal Pap or [place] Bx in last 5 years No 10/21/2016 2:[address] [facility] Menstrual Status Regular Periods 10/21/2016 2:03 PM CDT [facility] [place] Bx Done Today No 10/21/2016 2:03 PM CDT [facility] Additional Information None given 10/21/2016 2:03 PM CDT [facility] Automated Review Successful 10/21/2016 2:03 PM CDT [facility] Comment:Specimen processed s uccessfully by automated technical expert device, ThinPrep Imaging System, [employer] Note The pap test is a screening technique, not a diagnostic procedure. ??It is used primarily to screen for squamous cancers and precursor lesions. ??Published studies have shown that it is subject to both false negative and false positive results. ??The pap test should not be used as the sole means to diagnose or exclude pre-malignant and malignant lesions. Interpreted at [facility] (Central Lab, [facility], [facility], [facility], [facility], [facility], [facility]) 10/21/2016 2:03 PM CDT [facility] Other (Cervical) 10/12/2016 3:27 PM STACK CLERK 10/12/2016 3:28 PM STACK CLERK Sivan Duqueqq [facility] PATHOLOGY/CYTOLOGY [facility] [address] [place] [address], from Last 3 Months or Most Recently Relevant to Health Maintenance Advance Directives * Full Code (Latest Code Status on File) Date Activated Date Inactivated Comments 03/13/2018 1:40 PM 03/14/2018 3:58 PM Question Answer Comments Code Status Discussion: Discussed * Full Code Date Activated Date Inactivated Comments 02/26/2015 4:21 PM 02/28/2015 4:38 PM Question Answer Comments Code Status Discussion: Discussed * Full Code Date Activated Date Inactivated Comments 02/26/2015 8:23 AM 02/26/2015 4:21 PM Care Teams Vamp Strap Ironer Relationship Specialty Start Date End Date Ghassan Watkins [facility] [address] [facility] [place] [address] PCP - General 03/10/17
--- OUTSIDE RECORDS SUMMARY | 2024-05-09 11:11 | XMS_ITS | Encounter Summary ---
Author Organization [place] Address [facility] [place] [address] Care Team Providers Care Distribution Warehouse Manager Name Role Phone Emily Tee MD Primary Care Provid er Reason for Visit * Reason Onset Date Comments Outreach 05/14/2014 PHS Att 1,2 Encounter Details Date Type Department Care Team (Late st Contact Info) Description 05/14/[address] [place] [address] Emily Tee MD [address] [place], [place] [id number] Outreach (PHS Att 1,2) Social History Tobacco Use Types Packs/Day Years Used Date Smoking Tobacco: Former Cigarettes Q uit: 04/09/2013 Smokeless Tobacco: Never Comments:quit [...] Attempt 2 Message on voicemail Comments: Outreach Special Investigation Unit Investigator Nusrat Tejeda * Telephone Encounter - Carlos Hernández - 05/14/2014 11:54 AM CDT 05/14/2014 Call Regarding Preventive Health Screening Cervical/PAP Attempt 1 Message on voicemail Comments: Outreach Special Investigation Unit Investigator rbg documented in this encounter Plan of Treatment Not on file documented as of this encounter Visit Diagnoses Not on filedocumented in this encounter Care Teams Distribution Warehouse Manager Relationship Specialty Start Date End Date Emily Tee MD [address] [place] [address] PCP - General Internal Medicine 04/19/13 documented as of this encounter
== END 2024-05-09 11:09 | disposition home or self-care (01) ==
LOC: LKVREF 11:09
PROVIDERS: Visit Provider Otolaryngology
DX: H60.90 Unspecified otitis externa, unspecified ear (principal)
CPT/HCPCS: 87070; 87077; 87186

== ENCOUNTER 2024-05-15 16:33 | Outpatient (CLI) | payer OTHER, SELFPAY ==
--- OUTSIDE RECORDS SUMMARY | 2024-05-15 16:34 | XMS_ITS | Clinical Summary ---
Author Organization [place] [facility] Address [address] [place] [address]. [place] [address] Care Team Providers Care Propeller Driven Airplane Mechanic Name Role Phone Emily Tee MD Primary [...] Comments Blood Pressure 134/86 06/22/2023 10:19 AM OIL CHANGE TECHNICIAN Pulse 101 06/22/2023 10:19 AM OIL CHANGE TECHNICIAN Temperature 36.4 ??C (97.6 ??F) 06/22/2023 10:[address] Respiratory Rate 16 10/22/2022 12:35 PM CDT Oxygen Saturation 98% 06/22/2023 10:19 AM OIL CHANGE TECHNICIAN Inhaled Oxygen Concentration - - Weight 88.5 kg (195 lb) 06/22/2023 10:19 AM OIL CHANGE TECHNICIAN Height 175.3 cm (5' 9) 06/22/2023 10:19 AM OIL CHANGE TECHNICIAN Body Mass Index 28.8 06/22/2023 10:19 AM OIL CHANGE TECHNICIAN Plan of Treatment Health Maintenance Due Date [...] calendar year) 2023 COVID-19 Vaccine ( - 2023- season) 2024 INFLUENZA VACCINE (#1) 2024 09/10/1986 DTAP/TDAP/TD IMMUNIZATION (10 - Td or Tdap) 01/15/2025 01/15/2015, 07/02/2012, 08/09/2009, Additional history exists RSV VACCINE (1 - 1-dose 75+ series) 2060 MENINGITIS IMMUNIZATION Aged Out No l onger [...] Procedure Name Priority Date/Time Associated Diagnosis Comments MICROBIOLOGY ISOLATE REFERRAL Routine 05/09/2024 11:05 AM CDT ABSTRACT PAP (HIM EXTERNAL RESULT) Routine 01/07/2010 DIAGNOSIS NOT YET DEFINED HCL COMPREHENSIVE METABOLIC PANEL Routine 09/11/2009 1:48 PM OIL CHANGE TECHNICIAN Abdominal Pain, Other Specified Site from Last 3 Months or Most Recently Relevant to Health Maintenance Results * (ABNORMAL) Microbiology Isolate Referral (05/09/2024 11:05 AM CDT) Culture Streptococcus dysgalactiae (Group C/G Streptococcus)(A) DELLA 05/15/2024 7:20 AM CDT [facility] Swab RIGHT EAR STRUCTURE / Unknown Non-blood Collection / Unknown 05/09/2024 11:05 AM CDT 05/12/2024 12:08 PM CDT Narrative Organism Antibiotic Method Susceptibility Streptococcus dysgalactiae ( Group C/G Streptococcus) Penicillin DELLA <=0.03 ug/mL: Susceptible Streptococcus dysgalactiae ( Group C/G Streptococcus) Clindamycin DELLA <=0.06 ug/mL: Susceptible Streptococcus dysgalactiae ( Group C/G Streptococcus) Erythromycin DELLA <=0.06 ug/mL: Susceptible Streptococcus dysgalactiae ( Group C/G Streptococcus) Cefotaxime DELLA <=0.25 ug/mL: Susceptible Streptococcus dysgalactiae ( Group C/G Streptococcus) Ceftriaxone DELLA <=0.25 ug/mL: Susceptible Streptococcus dysgalactiae ( Group C/G Streptococcus) Vancomycin DELLA 0.25 ug/mL: Susceptible Antonio Nath MD LAB - MICRO GE NERAL ORDERABLES [facility] Inf. Diseases Diag. Lab [address] [facility] [place] [address], [facility] * ABSTRACT PAP-NO CHARGE (01/07/2010) Impressions MISYS - 01/07/2010 Information from office visit dated: 04/19/2013 ??Please, abstract pap from 01/16 @ [facility]. Provider Abstract LAB - HIM ERIKA Ina BRIDGETTULT MISYS * (ABNORMAL) ASolo COMPREHENSIVE MET.PANEL (09/11/2009 1:48 PM OIL CHANGE TECHNICIAN) Sodium 143 133 - 144 mmol/L [facility] Potassium 3.7 3.4 - 5.3 mmol/L [facility] Chloride 107 94 - 109 mmol/L [facility] Carbon Dioxide 24 20 - 32 mmol/L [facility] Anion Gap 12 6 - 17 mmol/L [facility] Glucose 103(H) 60 - 99 mg/dL [facility] Urea Nitrogen 7 5 - 24 mg/dL [facility] Creatinine 0.82 0.52 - 1.04 mg/dL [facility] Comment:New IDMS-traceable c alibration beginning 12/08/07 GFR Estimate 86 >60 mL/min/1.7 m2 [facility] GFR Estimate If Black >90 >60 mL/min/1.7 m2 [facility] Calcium 9.2 8.5 - 10.4 mg/dL [facility] Bilirubin Total 0.7 0.2 - 1.3 mg/dL [facility] Albumin 4.8 3.9 - 5.1 g/dL [facility] Comment:Reference range hoyt danay on 05/01/2008. Protein Total 7.9 6.8 - 8.8 g/dL [facility] Comment:As of 07, refer ence range reflects plasma specimen type. Alkaline Phosphatase 49 40 - 150 U/L [facility] ALT 11 0 - 50 U/L [facility] AST 19 0 - 45 U/L [facility] 09/11/2009 1:48 PM OIL CHANGE TECHNICIAN 09/11/2009 1:49 PM OIL CHANGE TECHNICIAN Summer Pearson MD LABORATORY [facility] from Last 3 Months or Most Recently Relevant to Health Maintenance Care Teams Propeller Driven Airplane Mechanic Relationship Specialty Start Date End Date Emily Tee MD [address] [place] [address] PCP - General Internal Medicine 04/19/13
--- OUTSIDE RECORDS SUMMARY | 2024-05-15 16:35 | XMS_ITS | Encounter Summary ---
Author Organization [place] Address [facility] [place] [address] Care Team Providers Care Emerging Solutions Executive Name Role Phone Emily Tee MD Primary Care Provid er Reason for Visit * Reason Onset Date Comments Outreach 05/14/2014 PHS Att 1,2 Encounter Details Date Type Department Care Team (Late st Contact Info) Description 05/14/[address] [place] [address] Emily Tee MD [address] [place], [place] [id number] Outreach (PHS Att 1,2) Social History Tobacco [...] Attempt 2 Message on voicemail Comments: Outreach Can Handler Nusrat Tejeda * Telephone Encounter - Carlos Hernández - 05/14/2014 11:54 AM CDT 05/14/2014 Call Regarding Preventive Health Screening Cervical/PAP Attempt 1 Message on voicemail Comments: Outreach Can Handler rbg documented in this encounter Plan of Treatment Not on file documented as of this encounter Visit Diagnoses Not on filedocumented in this encounter Care Teams Emerging Solutions Executive Relationship Specialty Start Date End Date Emily Tee MD [address] [place] [address] PCP - General Internal Medicine 04/19/13 documented as of this encounter
--- OUTSIDE RECORDS SUMMARY | 2024-05-15 16:35 | XMS_ITS | Patient Health Record ---
Author Organization [facility] Address [address] [address] Care Team Providers Care Ceramic Engineering Professor Name Role Phone None, No PCP Primary Care Provider David Vogel Unavailable [phone] Allergies No Known Allergies Results Component Value Reference Range Notes T3, FREE Reviewed date:05/26/2023 12:06:14 PM Interpretation: Performing Lab:[email or web address]-[place] Luis [address], [id number] uR Morris Notes/Report: T3, FREE 3.2 2.3-4.2 pg/mL TSH Reviewed date:05/20/2023 02:33:18 PM Interpretation: Performing Lab:[facility]-Jose Luis [address], [id number] Ru Morris Notes/Report: TSH 2.71 Reference Range > or = 20 Years 0.40-4.50 Ranges First trimester 0.26-2.66 Second trimester 0.55-2.73 Third trimester 0.43-2.91 T4, FREE Reviewed date:05/26/2023 12:07:02 PM Interpretation: Performing Lab:[email or web address]-[place] [address], [id number] Ru Morris Notes/Report: T4, FREE 1.2 0.8-1.8 ng/dL THYROGLOBULIN ANTIBODIES Reviewed date:05/26/2023 12:05:27 PM Interpretation: Performing Lab:[email or web address]-Jose Luis [address], [place] [id number] Ru Morris Notes/Report: THYROGLOBULIN ANTIBODIES 2 < or = 1 IU/mL THINPREP TIS AND HPV mRNA E6 /E7 (30 yrs and over) Reviewed date:05/26/2023 12:06:37 PM Interpretation: Performing Lab:[facility] [id number] Ru Zambrano Arturo Notes/Report: CLINICAL INFORMATION: None g ivrubina LMP: 04/30/23 PREV. PAP: 2018 PREV. BX: NONE GIVEN SOURCE: Cervix STATEMENT OF ADEQUACY: Satisfactory for evaluation. Endocervical/transformation zone component present. Partially obscuring inflammation INTERPRETATION/RESULT: Cytology Results: Negative for intraepithelial lesion or malignancy. COMMENT: This case could not be evaluated with computer assisted technology. The slide was manually screened according to routine procedures. WASH OIL PUMP OPERATOR: ELVER MELENDREZ (ASCP) CT Screening location: [place] [address] REVIEW WASH OIL PUMP OPERATOR: LOBITO CT(ASCP) CT Screening location: [place] [address] COMMENT EXPLANATORY NOTE: The Pap is a [...] HPV mRNA E6/E7 Not Detected Not Detected educational purposes only.) Methodology: Irrigation Supervisor-Mediated Amplification This assay detects E6/E7 viral messenger RNA (mRNA) from 14 high-risk HPV types (16,18,31,33,35,39,45,51,52 ,56,58,59,66,68). Cervical sources are required for HPV testing. If a vaginal source from a patient who has had a total hysterectomy with removal of cervix was submitted, please contact the testing laboratory for alternative testing options. For additional information, please refer to [email or web address] [email or web address]/[email or web address] (This link if provided for information/ Reason For Referral No Information Medications Medication SIG (Take, Route, Frequency, Duration) Notes Start Date End Date Status Paragard Intrauterine Copper - as directed Intrauterine removed 05/19/2023 Not-Taking Social History Tobacco Use: Social History Observation Description Date Details (start date - stop date) Never Smoker NA - NA Tobacco Use/Smoking Question Answer Notes Are you [...] Never (0 point) Points 4 Interpretation Positive Problems Problem Type SNOMED Code ICD Code Onset Dates Problem Status W/U Status Risk Notes Problem Surveillance of intrauterine device contraception (421625880) Encounter for routine checking of intrauterine contraceptive device (Z30.431) Active confirmed Problem Minerva's thyroiditis (26130169) Minerva's thyroiditis (E06.3) Active confirmed Vital Signs Blood pressure diastolic 86 mm Hg 05/19/2023 Height 69 in 05/19/2023 Blood pressure systolic 118 mm Hg 05/19/2023 Weight 197.8 lbs 05/19/2023 BMI 29.21 kg/m2 05/19/2023 Encounters Encounter Location Date Provider Diagnosis [facility] [address] [place] [address] 05/19/2023 David London Encounter for routin e checking of intrauterine contraceptive device Z30.431 and Minerva's thyroiditis E06.3 [facility] [address] [place] [address] 05/19/2023 David London Minerva's thyroidi tis E06.3 ; Encounter for annual routine gynecological examination Z01.419 and Encounter for screening for human papillomavirus (HPV) Z11.51 Assessments Encounter Date Diagnosis (ICD Code) Assessment Notes Treat ment Notes Treatment Clinical Notes 05/19/2023 Encounter for [...] documentation and further activities per the note Plan Of Treatment No Information Insurance Providers Payer Name Payer Address Payer Phone Subscriber Number Group Number Insured Name Patient Relationship to Insured Coverage Start Date Coverage End Date [facility] [address] [place], [place] [id number] Kayy Hurtado Self - patient is the insured Medical (General) History Medical History History ICD Code Minerva's Disease Hospitalization History Reason Date(Month/Year) child
--- OUTSIDE RECORDS SUMMARY | 2024-05-15 16:35 | XMS_ITS | Referral Summary ---
Author Organization [facility] Address [address] [place] [address]. [place] [address] Care Team Providers Care Telecommunications Switch Technician Name Role Phone Emily Tee MD Primary [...] Comments Blood Pressure 134/86 06/22/2023 10:19 AM PROGRAM PROPOSALS COORDINATOR Pulse 101 06/22/2023 10:19 AM PROGRAM PROPOSALS COORDINATOR Temperature 36.4 ??C (97.6 ??F) 06/22/2023 10:[address] Respiratory Rate 16 10/22/2022 12:35 PM CDT Oxygen Saturation 98% 06/22/2023 10:19 AM PROGRAM PROPOSALS COORDINATOR Inhaled Oxygen Concentration - - Weight 88.5 kg (195 lb) 06/22/2023 10:19 AM PROGRAM PROPOSALS COORDINATOR Height 175.3 cm (5' 9) 06/22/2023 10:19 AM PROGRAM PROPOSALS COORDINATOR Body Mass Index 28.8 06/22/2023 10:19 AM PROGRAM PROPOSALS COORDINATOR Plan of Treatment Not on file Procedures Procedure Name Priority Date/Time Associated Diagnosis Comments MICROBIOLOGY ISOLATE REFERRAL Routine 05/09/2024 11:05 AM CDT ABSTRACT PAP (HIM EXTERNAL RESULT) Routine 01/07/2010 DIAGNOSIS NOT YET DEFINED HCL COMPREHENSIVE METABOLIC PANEL Routine 09/11/2009 1:48 PM PROGRAM PROPOSALS COORDINATOR Abdominal Pain, Other Specified Site from Last [...] MICRO GE NERAL ORDERABLES [facility] Inf. Diseases Diag. Lab [address] [facility], Room [address] [place] [id number] * ABSTRACT PAP-NO CHARGE (01/07/2010) Impressions MISYS - 01/07/2010 Information from office visit dated: 04/19/2013 ??Please, abstract pap from 01/16 @ [facility]. Provider Abstract LAB - HIM EXTERNAL R ESULT MISYS * (ABNORMAL) A.M.A. COMPREHENSIVE MET.PANEL (09/11/2009 1:48 PM PROGRAM PROPOSALS COORDINATOR) Sodium 143 133 - 144 mmol/L [facility] Potassium 3.7 3.4 - 5.3 mmol/L [facility] Chloride 107 94 - 109 mmol/L [facility] Carbon Dioxide 24 20 - 32 mmol/L [facility] Anion Gap 12 6 - 17 mmol/L [facility] Glucose 103(H) 60 - 99 mg/dL [facility] Urea Nitrogen 7 5 - 24 mg/dL [facility] Creatinine 0.82 0.52 - 1.04 mg/dL [facility] Comment:New IDMS-traceable c alibration beginning 12/08/07 GFR Estimate 86 >60 mL/min/1.7 m2 [facility] GFR Estimate If Black >90 >60 mL/min/1.7 m2 [facility] Calcium 9.2 8.5 - 10.4 mg/dL [facility] Bilirubin Total 0.7 0.2 - 1.3 mg/dL [facility] Albumin 4.8 3.9 - 5.1 g/dL [facility] Comment:Reference range hoyt ged on 05/01/2008. Protein Total 7.9 6.8 - 8.8 g/dL [facility] Comment:As of 07, refer ence range reflects plasma specimen type. Alkaline Phosphatase 49 40 - 150 U/L [facility] ALT 11 0 - 50 U/L [facility] AST 19 0 - 45 U/L [facility] 09/11/2009 1:48 PM PROGRAM PROPOSALS COORDINATOR 09/11/2009 1:49 PM PROGRAM PROPOSALS COORDINATOR Summer Pearson MD LABORATORY [facility] from Last 3 Months or Most Recently Relevant to Health Maintenance Care Teams Telecommunications Switch Technician Relationship Specialty Start Date End Date Emily Tee MD [address] [place] [address] PCP - General Internal Medicine 04/19/13
--- OUTSIDE RECORDS SUMMARY | 2024-05-15 16:35 | XMS_ITS | Clinical Summary ---
Author Organization [facility] Address [place], [place] [address] Care Team Providers Care Program Arranger Name Role Phone Roland Vertical Knowledge Primary Care Provider [phone] Allergies No known active allergies Medications Medication [...] Department Care Team Description 04/21/2024 Lab Requisition [facility] [phone] Unknown, Doctor from Last 3 Months Immunizations [...] g [address] Delivery Location:[facility]) Comments:OR staff pres ent on floor 2017 35w 4d 2.08 kg (4 lb 9.4 oz) F Vag Epidur al N Livin g [address] Complications:None Delivery Location:[facility] ([facility]) Last Filed Vital [...] ANTI HIV 1/2 Routine 09/07/2017 11:31 AM WINCH DRIVER Supervision of high risk in first trimester GLAZE SPRAYER THIN PREP PAP SCREEN IMAGED Routine 10/12/2016 3:27 PM WINCH DRIVER Pap smear for cervical cancer screening from Last 3 Months or Most Recently Relevant to Health Maintenance Results * (ABNORMAL) REFERRAL SUSCEPTIBILITY (04/19/2024 3:50 PM CDT) CULTURE RESULT(A) 04/24/2024 7:18 AM CDT [facility]- NTRAL LABORATORY CULTURE Streptococcus dysgalactiae (Beta Strep group C or G) 04/24/2024 7:18 AM CDT [facility] Other SPECIMEN FROM WOUND / [...] or G) CLARITHROMYCIN S Doctor Unknown [facility] [address] [place] [address], * ANTI HIV 1/2 (09/07/2017 11:31 AM WINCH DRIVER) HIV-1/HIV-2 ANTIBODY Non-Reacti ve Non-Reacti ve 09/07/2017 8:11 PM WINCH DRIVER [facility] TRAL LABORATORY Blood BLOOD SPECIMEN / Unknown Venipuncture / Unknown 09/07/2017 11:31 AM WINCH DRIVER 09/07/2017 11:31 AM WINCH DRIVER Narrative [facility] - 09/07/2017 8:11 PM WINCH DRIVER HIV-1 p24 and HIV-1/HIV-2 Ab not detected Melanie Irene MD SEND OUTS [facility] [address] [place] [address], * GLAZE SPRAYER THIN PREP PAP SCREEN IMAGED (10/12/2016 3:27 PM WINCH DRIVER) Case Report Gynecologic Cytology Report ? Case: [id number] ? Authorizing Provider: ??Nathaniel, Sivan Quiñones, LAKESHIA ? Collected: ? 10/12/2016 1527 ? Ordering Location: ? [facility] ?? Received: ?10/12/2016 1528 ? Clinic ? First Screen: ?Orin Funez ? Specimen: ?GLAZE SPRAYER ThinPrep Vial Screening, Cervical ? 10/21/2016 2:03 PM CDT [facility] INTERPRETATION/ RESULT NEGATIVE FOR INTRAEPITHELIAL LESION OR MALIGNANCY (NIL) (none) 10/21/2016 2:03 PM CDT [facility] IMEN ADEQUACY Satisfactory for evaluation Endocervical component present 10/21/2016 2:03 PM CDT [facility] HPV REQUEST HPV if ASCUS 10/21/2016 2:03 PM CDT [facility] Date of LMP 10/07/2016 10/21/2016 2:03 PM CDT [facility] Last Pap Date 07/26/14 10/21/2016 2:03 PM CDT [facility] Last Pap Result NIL 7 2:03 PM CDT [facility] Abnormal Pap or Gum Spring Bx in last 5 years No 10/21/2016 2:[address] [facility] Menstrual Status Regular Periods 10/21/2016 2:03 PM CDT [facility] Gum Spring Bx Done Today No 10/21/2016 2:03 PM CDT [facility] Additional Information None given 10/21/2016 2:03 PM CDT [facility] Automated Review Successful 10/21/2016 2:03 PM CDT [facility] Comment:Specimen processed s uccessfully by automated ethanol operations manager device, ThinPrep Imaging System, [employer] Note The pap test is a screening technique, not a diagnostic procedure. ??It is used primarily to screen for squamous cancers and precursor lesions. ??Published studies have shown that it is subject to both false negative and false positive results. ??The pap test should not be used as the sole means to diagnose or exclude pre-malignant and malignant lesions. Interpreted at [facility] (Central Lab, [facility], [facility], [facility], [facility], [facility][Note 3], [facility]) 10/21/2016 2:03 PM CDT [facility] EN[facility]AL LABORATORY Other (Cervical) 10/12/2016 3:27 PM WINCH DRIVER 10/12/2016 3:28 PM WINCH DRIVER Sivan Duqueqq [facility] PATH[facility]/CYTOLOGY [facility]-CENTRAL LABORATORY [address] [place] [address], from Last 3 Months or Most Recently [...] 8:23 AM 02/26/2015 4:21 PM Care Teams Program Arranger Relationship Specialty Start Date End Date Ghassan Watkins [facility] [address] [facility] [place] [address] PCP - General 03/10/17
--- NOTE | 2024-05-15 16:45 | CRLHL7_ITS ---
For Patients: As a result of the 21st Century Cures Act, medical imaging exams and procedure reports are released immediately into your electronic medical record. You may view this report before your referring provider. If you have questions, please contact your health care provider. INDICATION: Right-sided otalgia. Redness and swelling in both ear canals and Pinna. Difficulty hearing. TECHNIQUE: CT of the temporal bones without contrast. Coronal and axial small field of view reconstructions of both temporal bones are included. COMPARISON: None. FINDINGS: Right temporal bone: There is mild thickening and inflammatory changes involving the right-sided pinna and periauricular soft tissues. There is significant soft tissue thickening throughout the right external auditory canal. There is also thickening of the right-sided tympanic membrane. The middle ear cleft is clear. No material is present within the sinus tympani. The scutum is not eroded. The ossicles are normal in appearance and location with no erosions or dislocation. The otic capsule is normal in appearance.No evidence of fenestral or retrofenestral otospongiosis. No sclerosis within the labyrinthine canal. The vestibule and semicircular canals are normal in morphology with no evidence of semicircular canal dehiscence. Normal cochlear morphology with appropriate number of turns. Vestibular aqueduct is normal in size. Facial nerve canal is intact and normal in course/caliber. Petrous apex is normal. Mastoid air cells are clear. The carotid canal and jugular foramen are normal. Left temporal bone: Small focus of cerumen within the left external auditory canal. The external auditory canal is otherwise patent. The tympanic membrane is not thickened. The middle ear cleft is clear. No material is present within the sinus tympani. The scutum is not eroded. The ossicles are normal in appearance and location with no erosions or dislocation. The otic capsule is normal in appearance. No evidence of fenestral or retrofenestral otospongiosis. No sclerosis within the labyrinthine canal. The vestibule and semicircular canals are normal in morphology with no evidence of semicircular canal dehiscence. Normal cochlear morphology with appropriate number of turns. Vestibular aqueduct is normal in size. Facial nerve canal is intact and normal in course/caliber. Petrous apex is normal. Opacification of multiple superficial/posterior mastoid air cells. No air cell coalescence. The carotid canal and jugular foramen are normal. No fracture or significant degenerative change, lytic or blastic process is demonstrated in the skull base or temporomandibular joints. The imaged intracranial structures are normal in appearance. Orbits are normal. Imaged soft tissue structures are normal in appearance. The paranasal sinuses are well aerated. IMPRESSION: 1. Findings compatible with right-sided otitis externa in the appropriate clinical setting. There is mild thickening of the right-sided tympanic membrane. No focal mass lesion. The right middle ear cleft is clear. No destructive bony changes involving the ossicular chain or mastoid air cells. 2. Nonspecific opacification of several left-sided mastoid air cells. No left-sided mastoid air cell coalescence. Please note that all CT scans at this facility use dose modulation, iterative reconstruction, and/or weight-based dosing when appropriate to reduce radiation dose to as low as reasonably achievable. Dictated by Roc Sandra MD @ 05/16/2024 7:46:27 AM (Electronically Signed)
== END 2024-05-15 16:34 | disposition home or self-care (01) ==
LOC: CT 16:33
PROVIDERS: Visit Provider Otolaryngology
DX: H60.501 Unspecified acute noninfective otitis externa, right ear (principal)
CPT/HCPCS: 70480

== ENCOUNTER 2024-07-11 14:16 | Outpatient (REF) | payer OTHER, SELFPAY ==
[2024-07-11 15:34] LABS: C Reactive Protein* 1.1 mg/dL (0.5-1.0)
[2024-07-11 17:24] LABS: Erythrocyte SedimentationRate* 2 mm/hr (2-20)
[2024-07-12 14:40] LABS: Thyroid Peroxidase (TPO) Ab 70.2 IU/mL (0.0-9.0)
[2024-07-12 20:32] LABS: Thyroid Stimulating IgG (TSI) <0.10 IU/L (<=0.54)
[2024-07-12 21:44] LABS: Free T3 2.8 pg/mL (2.5-4.3)
[2024-07-13 00:29] LABS: Anti-Nuclear Ab(ANA)IgG ELISA None Detected (None Detected)
== END 2024-07-11 14:17 | disposition home or self-care (01) ==
LOC: NPINS 14:16
PROVIDERS: PCP Emergency Medicine; Visit Provider Physician Assistant
DX: L30.9 Dermatitis, unspecified (principal); D18.01 Hemangioma of skin and subcutaneous tissue; D23.39 Other benign neoplasm of skin of other parts of face
CPT/HCPCS: 84443; 84445; 84481; 85651; 86038; 86140; 86225; 86235; 86376; 86800

== ENCOUNTER 2025-06-04 11:18 | Outpatient (CLI) | payer OTHER, SELFPAY ==
--- NOTE | 2025-06-04 11:30 | CRLHL7_ITS ---
For Patients: As a result of the Century Cures Act, medical imaging exams and procedure reports are released immediately into your electronic medical record. You may view this report before your referring provider. If you have questions, please contact your health care provider. INDICATION: BILATERAL SCREENING MAMMOGRAM, ASYMPTOMATIC 39 Y/O FEMALE COMPARISON: BASELINE TECHNIQUE: Digital mammogram in CC and MLO projections including computer-aided detection (CAD) and tomosynthesis. BREAST COMPOSITION: There are scattered areas of fibroglandular density. FINDINGS: No suspicious findings. ASSESSMENT: BI-RADS 1 Negative RECOMMENDATION: Annual screening mammogram. A lay language report of this examination will be provided to the patient. Dictated by: Yony Jasso MD @ 06/04/2025 12:02:03 (Electronically Signed)
== END 2025-06-04 11:19 | disposition home or self-care (01) ==
LOC: MAMMO 11:19
PROVIDERS: Visit Provider Obstetrics & Gynecology
DX: Z12.31 Encounter for screening mammogram for malignant neoplasm of breast (principal)
CPT/HCPCS: 77063; 77067